=== PATIENT | male | born 1985 | race American Indian/Alaskan Native ===

== ENCOUNTER 2022-01-22 03:11 | Emergency (ER) | payer SELFPAY ==
[2022-01-22 04:01] VITALS: BP 141/74
--- NOTE | 2022-01-22 04:56 | XRay Report ---
CHEST 1 VIEW 01/22/2022 3:28 AM INDICATION / CLINICAL INFORMATION: chest pain left chest wall. COMPARISON: None available. FINDINGS: SUPPORT DEVICES: None. HEART / MEDIASTINUM: No significant abnormality. LUNGS / PLEURA: No significant pulmonary abnormality. No significant pleural effusion. No pneumothora x. ADDITIONAL FINDINGS: No significant additional findings. IMPRESSION: 1. No acute abnormality of the chest. Signer Name: Bello Lomeli MD Signed: 01/22/2022 4:51 AM Workstation Name: [id number]
[2022-01-22] MEDS ORDERED: ASPIRIN 325 MG TAB PO ONE (05:52)
--- NOTE | 2022-01-22 06:19 | Emergency Department Report ---
ED General Adult HPI - General Chief complaint: Chest Pain Stated complaint: CHEST PAIN Source: patient Mode of arrival: Ambulatory Limitations: No Limitations - History of Present Illness Initial comments: Patient is a 36-year-old -[place] male with a history of HIV and tobacco abuse who presents to the ED with intermittent left-sided chest pain for the last 3 hours. Patient states that he was asleep and woke up with left-sided chest pain and decided come to the ED for evaluation. Patient denies shortness of breath, dizziness, syncope, headache, nausea and vomiting, diaphoresis, neck pain, fever, chills, cough, abdominal pain, back pain, numbness and tingling or weakness of upper and lower extremities bilaterally. MD Complaint: left -sided chest pain -: Sudden, hour(s) (3) Location: chest Radiation: non-radiation Severity scale (0 -10): 4 Quality: aching Consistency: intermittent Improves with: none Worsens with: none Associated Symptoms: denies other symptoms, chest pain (Left-sided chest pain). denies: confusion, cough, diaphoresis, fever/chills, headaches, loss of appetite, malaise, nausea/vomiting, rash, shortness of breath, syncope, weakness, other Treatments Prior to Arrival: none - Related Data Allergies Allergy/AdvReac Type Severity Reaction Status Date / Time amoxicillin Allergy Rash Verified 01/22/22 04:02 ED Review of Systems ROS: Stated complaint: CHEST PAIN Other details as noted in HPI Constitutional: denies: chills, fever Eyes: denies: eye pain, eye discharge, vision change ENT: denies: ear pain, throat pain Respiratory: denies: cough, shortness of breath, wheezing Cardiovascular: chest pain (Left-sided chest pain). denies: palpitations Endocrine: no symptoms reported Gastrointestinal: denies: abdominal pain, nausea, vomiting, diarrhea Genitourinary: denies: urgency, dysuria Musculoskeletal: denies: back pain, joint swelling, arthralgia Skin: denies: rash, lesions Neurological: denies: headache, weakness, paresthesias Psychiatric: denies: anxiety, depression Hematological/Lymphatic: denies: easy bleeding, easy bruising ED Past Medical Hx - Past Medical History Hx HIV: Yes Additional medical history: Heavy tobacco abuse - Social History Smoking Status: Current Every Day Smoker Substance Use Type: None ED Physical Exam - General Limitations: No Limitations General appearance: alert, in no apparent distress - Head Head exam: Present: atraumatic, normocephalic, normal inspection - Eye Eye exam: Present: normal appearance, PERRL, EOMI Pupils: Present: normal accommodation - ENT ENT exam: Present: normal exam, normal orophraynx, mucous membranes moist, TM's normal bilaterally, normal external ear exam - Neck Neck exam: Present: normal inspection, full ROM. Absent: tenderness - Respiratory Respiratory exam: Present: normal lung sounds bilaterally, chest wall tenderness (Palpable reproducible left sided chest wall tenderness). Absent: respiratory distress, wheezes, rales, rhonchi, accessory muscle use - Cardiovascular Cardiovascular Exam: Present: regular rate, normal rhythm, normal heart sounds. Absent: systolic murmur, diastolic murmur, rubs, gallop - GI/Abdominal GI/Abdominal exam: Present: soft, normal bowel sounds. Absent: tenderness, guarding, rigid, hyperactive bowel sounds, hypoactive bowel sounds - Extremities Exam Extremities exam: Present: normal inspection, full ROM, normal capillary refill - Back Exam Back exam: Present: normal inspection, full ROM. Absent: tenderness, CVA tenderness (R), CVA tenderness (L), muscle spasm, paraspinal tenderness, vertebral tenderness - Neurological Exam Neurological exam: Present: alert, oriented X3, CN II-XII intact, normal gait, reflexes normal - Psychiatric Psychiatric exam: Present: normal affect, normal mood, anxious - Skin Skin exam: Present: warm, dry, intact, normal color. Absent: rash ED Course Vital Signs 01/22/22 03:55 Temperature 98.2 F Pulse Rate 75 Respiratory 12 Rate Blood Pressure 141/74 O2 Sat by Pulse 99 Oximetry ED Medical Decision Making - Radiology Data Radiology results: report reviewed, image reviewed [address] [address] XRay Report Signed Patient: RIGO EDWARDS MR#: [id number] : 1985 Acct:[id number] Age/Sex: 36 / M ADM Date: 01/22/22 Loc: ED Attending Dr: Ordering Physician: JOLANTA AMIN Date of Service: 01/22/22 Procedure(s): XR chest 1V ap Accession Number(s): [id number] cc: JOLANTA AMIN Fluoro Time In Minutes: CHEST 1 VIEW 01/22/2022 3:28 AM INDICATION / CLINICAL INFORMATION: chest pain left chest wall. COMPARISON: None available. FINDINGS: SUPPORT DEVICES: None. HEART / MEDIASTINUM: No significant abnormality. LUNGS / PLEURA: No significant pulmonary abnormality. No significant pleural effusion. No pneumothorax. ADDITIONAL FINDINGS: No significant additional findings. IMPRESSION: 1. No acute abnormality of the chest. Signer Name: Bello Lomeli MD Signed: 01/22/2022 4:51 AM Workstation Name: [id number] Transcribed By: ASHIA Dictated By: Bello Lomeli MD Electronically Authenticated By: Bello Lomeli MD Signed Date/Time: 01/22/22450 DD/ 9 TD/TT: - Medical Decision Making This is a 36-year-old -[place] male with a history of HIV and tobacco abuse who presents to the ED with intermittent left-sided chest pain for the last 3 hours. Patient states that he was asleep and woke up with left-sided chest pain and decided come to the ED for evaluation. In the ED, patient is alert and oriented x3 and is not in any distress. Chest x-ray showed no acute cardiopulmonary abnormalities or pneumonitis. Lab tests were ordered. Patient however left the ED AMA before EKG and labs could be drawn. - Differential Diagnosis ACS; pneumonia; costochondritis; muscle strain; PE; dissection; Critical care attestation.: If time is entered above; I have spent that time in minutes in the direct care of this critically ill patient, excluding procedure time. ED Disposition Clinical Impression: Acute nonspecific chest pain with low risk of coronary artery disease, Muscle strain of anterior chest wall, Acute costochondritis Disposition: 07 LEFT AGAINST MEDICAL ADVICE Is pt being admited?: No Does the pt Need Aspirin: No Condition: Undetermined Instructions: Chest Pain (ED) Time of Disposition: 06:19 Print Language: KIS[place]ILI
[2022-01-22 06:23] LABS: Basophils % (Auto) 0.3 % (0.0-1.8); Eosinophils # (Auto) 0.1 K/mm3 (0.0-0.4); Eosinophils % (Auto) 1.3 % (0.0-4.3); Hematocrit 45.9 % (35.5-45.6); Hemoglobin 15.7 gm/dl (11.8-15.2); Lymphocytes # (Auto) 1.8 K/mm3 (1.2-5.4); Lymphocytes % (Auto) 23.4 % (13.4-35.0); Mean Corpuscular HGB Conc 34 % (32-34); Mean Corpuscular Volume 90 fl (84-94); Monocytes # (Auto) 0.8 K/mm3 (0.0-0.8); Platelet Count 240 K/mm3 (140-440); Red Blood Count 5.11 M/mm3 (3.65-5.03)
[2022-01-22 06:37] LABS: Alanine Aminotransferase 9 units/L (7-56); Albumin 4.9 g/dL (3.9-5); BUN/Creatinine Ratio 14; Blood Urea Nitrogen 17 mg/dL (9-20); Calcium 9.8 mg/dL (8.4-10.2); Hemolysis Index 12
== END 2022-01-22 07:13 | disposition left against medical advice (07) ==
LOC: ED 03:11
DX: S29.011A Strain of muscle and tendon of front wall of thorax, initial encounter (principal); R07.89 Other chest pain; M94.0 Chondrocostal junction syndrome [Tietze]; Z21 Asymptomatic human immunodeficiency virus [HIV] infection status; F17.200 Nicotine dependence, unspecified, uncomplicated; X58.XXXA Exposure to other specified factors, initial encounter; Y93.89 Activity, other specified; Y92.89 Other specified places as the place of occurrence of the external cause; Y99.8 Other external cause status
CPT/HCPCS: 36415; 71045; 80053; 84484; 85025; 99283

== ENCOUNTER 2022-01-24 02:29 | Emergency (ER) | payer SELFPAY ==
--- NOTE | 2022-01-24 03:11 | XRay Report ---
RIGHT ANKLE 3 VIEWS INDICATION / CLINICAL INFORMATION: Right ankle pain/injury. COMPARISON: None available. FINDINGS: BONES and JOINT(S): No acute fracture or subluxation. No significant arthritis. SOFT TISSUES: No significant abnormality. ADDITIONAL FINDINGS: None. IMPRESSION: 1. No acute findings. Signer Name: Bello Lomeli MD Signed: 01/24/2022 3:06 AM Workstation Name: [id number]
[2022-01-24] MEDS ORDERED: IBUPROFEN 600 MG TAB PO ONE (04:03)
[2022-01-24] MEDS ORDERED: ACETAMINOPHEN 500 MG TAB PO ONE (04:03)
--- NOTE | 2022-01-24 06:26 | Emergency Department Report ---
ED Extremity Problem HPI - General Chief complaint: Extremity Injury, Lower Stated complaint: CHEST PAIN/SPRAIN RT ANKLE Source: patient Mode of arrival: Ambulatory Limitations: No Limitations - History of Present Illness Initial comments: Patient is a 36-year-old -[place] female with a history of HIV who presents to the ED with complaint of acute onset persistent mild distal anterior right lower leg pain with mild swelling for the last 2 days. Patient states the pain is worsened especially with movement. Patient denies fall, traumatic injury, fever, chills, cough, sore throat, nausea and vomiting, numbness and tingling or weakness of right leg or lower back pain. MD Complaint: extremity pain (Anterior right lower leg pain with mild swelling), extremity swelling (Distal mild anterior right lower leg swelling) -: Sudden, days(s) (2) Location: right, lower extremity (Distal right lower leg pain) History of Same: No -: Yes arthralgia (Distal right lower leg pain) Severity scale (0 -10): 6 Quality: aching, sharp Consistency: constant Improves with: nothing Worsens with: weight bearing, walking, palpation Associated Symptoms: denies other symptoms, arthralgias, rash (Mild erythematous rash on anterior right lower leg). denies: chest pain, shortness of breath, fever, myalgias - Related Data Previous Rx's Medication Instructions Recorded Last Taken Type Ibuprofen [Motrin] 800 mg PO Q8HR PRN #30 tablet 01/24/22 Unknown Rx Sulfamethoxazole/Trimethoprim 1 each PO Q12H #20 tab 01/24/22 Unknown Rx [Bactrim DS TAB] Allergies Allergy/AdvReac Type Severity Reaction Status Date / Time amoxicillin Allergy Rash Verified 01/22/22 04:02 ED Review of Systems ROS: Stated complaint: CHEST PAIN/SPRAIN RT ANKLE Other details as noted in HPI Constitutional: denies: chills, fever Eyes: denies: eye pain, eye discharge, vision change ENT: denies: ear pain, throat pain Respiratory: denies: cough, shortness of breath, wheezing Cardiovascular: denies: chest pain, palpitations Endocrine: no symptoms reported Gastrointestinal: denies: abdominal pain, nausea, diarrhea Genitourinary: denies: urgency, dysuria Musculoskeletal: arthralgia (Right distal right lower leg pain due to mild swelling and mild erythematous rash). denies: back pain, joint swelling Skin: rash (Mild erythematous rash on anterior distal right lower leg), change in color. denies: lesions Neurological: denies: headache, weakness, paresthesias Psychiatric: denies: anxiety, depression Hematological/Lymphatic: denies: easy bleeding, easy bruising ED Past Medical Hx - Past Medical History Previous Medical History?: Yes Hx HIV: Yes Additional medical history: Heavy tobacco abuse - Surgical History Past Surgical History?: No - Social History Smoking Status: Current Every Day Smoker Substance Use Type: None - Medications Home Medications: Home Medications Medication Instructions Recorded Confirmed Last Taken Type Ibuprofen [Motrin] 800 mg PO Q8HR PRN #30 tablet 01/24/22 Unknown Rx Sulfamethoxazole/Trimethoprim 1 each PO Q12H #20 tab 01/24/22 Unknown Rx [Bactrim DS TAB] ED Physical Exam - General Limitations: No Limitations General appearance: alert, in no apparent distress - Head Head exam: Present: atraumatic, normocephalic, normal inspection - Eye Eye exam: Present: normal appearance, PERRL, EOMI Pupils: Present: normal accommodation - ENT ENT exam: Present: normal exam, normal orophraynx, mucous membranes moist, TM's normal bilaterally, normal external ear exam - Neck Neck exam: Present: normal inspection, full ROM. Absent: tenderness - Respiratory Respiratory exam: Present: normal lung sounds bilaterally. Absent: respiratory distress, wheezes, rales, rhonchi, chest wall tenderness, accessory muscle use, prolonged expiratory - Cardiovascular Cardiovascular Exam: Present: regular rate, normal rhythm, normal heart sounds. Absent: systolic murmur, diastolic murmur, rubs, gallop - GI/Abdominal GI/Abdominal exam: Present: soft, normal bowel sounds. Absent: tenderness, guarding, rebound, hyperactive bowel sounds, hypoactive bowel sounds, organomegaly, mass - Extremities Exam Extremities exam: Present: normal inspection, full ROM, tenderness (Palpable mild tenderness on distal anterior right lower leg with mild swelling due to mild erythematous rash), normal capillary refill. Absent: pedal edema, joint swelling, calf tenderness - Back Exam Back exam: Present: normal inspection, full ROM. Absent: tenderness, CVA tenderness (R), CVA tenderness (L), muscle spasm, paraspinal tenderness, vertebral tenderness - Neurological Exam Neurological exam: Present: alert, oriented X3, CN II-XII intact, normal gait, reflexes normal - Psychiatric Psychiatric exam: Present: normal affect, normal mood - Skin Skin exam: Present: warm, dry, intact, normal color, rash (Mild erythematous maculopapular mildly tender rash on distal anterior right lower leg), erythema ED Course Vital Signs 01/24/22 02:34 Temperature 98.5 F Pulse Rate 88 Respiratory 16 Rate Blood Pressure 135/75 [Right] O2 Sat by Pulse 98 Oximetry ED Medical Decision Making - Medical Decision Making This is a 36-year-old -[place] female with a history of HIV who presents to the ED with complaint of acute onset persistent mild distal anterior right lower leg pain with mild swelling for the last 2 days. Patient states the pain is worsened especially with movement. In the ED, patient is alert and oriented x3 and is not in any distress. Patient was treated for pain in the ED. Based on the history and physical exam findings, the patient will discharge home on pain medications and prophylactic antibiotics and was advised to follow-up with his primary care physician in 7 to 10 days for reevaluation or return to the ED immediately if symptoms get worse. - Differential Diagnosis Cellulitis; tendinitis; muscle strain; Critical care attestation.: If time is entered above; I have spent that time in minutes in the direct care of this critically ill patient, excluding procedure time. ED Disposition Clinical Impression: Cellulitis of right leg without foot Muscle strain of right lower extremity Qualifiers: Encounter type: initial encounter Qualified Code(s): S86.911A - Strain of unspecified muscle(s) and tendon(s) at lower leg level, right leg, initial encounter Disposition: HOME / SELF CARE / HOMELESS Is pt being admited?: No Does the pt Need Aspirin: No Condition: Stable Instructions: Cellulitis, Adult, [id number], Muscle Strain, [id number] Additional Instructions: Take medication with food, drink plenty fluids and follow-up with your primary care physician in 7 to 10 days for reevaluation. Return to the ED immediately if symptoms get worse Prescriptions: Sulfamethoxazole/Trimethoprim [Bactrim DS TAB] 1 each PO Q12H #20 tab Ibuprofen [Motrin] 800 mg PO Q8HR PRN #30 tablet PRN Reason: Pain , Severe (7-10) Referrals: [facility] [Provider Group] - 7-10 days Time of Disposition: 06:27 Print Language: MOZAMBICAN
[2022-01-24 06:40] VITALS: BP 118/74
== END 2022-01-24 06:39 | disposition home or self-care (01) ==
LOC: ED 02:29
DX: S86.911A Strain of unspecified muscle(s) and tendon(s) at lower leg level, right leg, initial encounter (principal); L03.115 Cellulitis of right lower limb; Z21 Asymptomatic human immunodeficiency virus [HIV] infection status; F17.200 Nicotine dependence, unspecified, uncomplicated; Z91.09 Other allergy status, other than to drugs and biological substances; Z79.899 Other long term (current) drug therapy; X58.XXXA Exposure to other specified factors, initial encounter; Y93.89 Activity, other specified; Y92.89 Other specified places as the place of occurrence of the external cause; Y99.8 Other external cause status
CPT/HCPCS: 99283

== ENCOUNTER 2022-01-27 14:04 | Inpatient (IN) | payer SELFPAY ==
[2022-01-27] MEDS ORDERED: charcoal activated SOLUTION 25 GM/120 ML PO ONE (15:33)
[2022-01-27 16:16] LABS: INR 0.97 (0.87-1.13)
[2022-01-27 16:17] LABS: Partial Thromboplastin Time 23.3 Sec. (24.2-36.6)
[2022-01-27 16:25] LABS: Basophils % (Auto) 0.3 % (0.0-1.8); Eosinophils % (Auto) 0.4 % (0.0-4.3); Hematocrit 50.8 % (35.5-45.6); Hemoglobin 16.6 gm/dl (11.8-15.2); Lymphocytes # (Auto) 1.4 K/mm3 (1.2-5.4); Mean Corpuscular HGB Conc 33 % (32-34); Mean Corpuscular Volume 92 fl (84-94); Monocytes # (Auto) 0.6 K/mm3 (0.0-0.8); Monocytes % (Auto) 5.6 % (0.0-7.3); Platelet Count 241 K/mm3 (140-440); Red Blood Count 5.53 M/mm3 (3.65-5.03); Red Cell Distribution Width 13.6 % (13.2-15.2)
[2022-01-27 16:35] LABS: Alanine Aminotransferase 11 units/L (7-56); Albumin 5.1 g/dL (3.9-5); BUN/Creatinine Ratio 8; Blood Urea Nitrogen 9 mg/dL (9-20); Calcium 10.2 mg/dL (8.4-10.2); Hemolysis Index 2
[2022-01-27 16:46] LABS: Benzodiazepines Screen,Urine Negative; Methadone Screen,Urine Negative; Opiate Screen,Urine Negative
[2022-01-27 17:03] LABS: Amphetamine Screen,Urine Positive; Cannabinoid Screen,Urine Positive; Cocaine Screen,Urine Positive
--- NOTE | 2022-01-27 17:51 | Emergency Department Report ---
ED General Adult HPI - General Chief complaint: Overdose Stated complaint: SUICIDE ATTEMPT Time Seen by Provider: 01/27/22 15:12 Source: patient, EMS Mode of arrival: Stretcher Limitations: No Limitations - History of Present Illness Initial comments: patient presents 2/2 tasking 20 pills of an unknown medication @ home, 10 minutes [employer] in ED. 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 Patient states he was trying to kill himself when he did this. Denies , CP, SOB, abd pain, nausea, vomiting, back pain, palpitations, numbness, weakness. Severity scale (0 -10): 5 - Related Data Previous Rx's Medication Instructions Recorded Last Taken Type Ibuprofen [Motrin] 800 mg PO Q8HR PRN #30 tablet 01/24/22 Unknown Rx Sulfamethoxazole/Trimethoprim 1 each PO Q12H #20 tab 01/24/22 Unknown Rx [Bactrim DS TAB] Allergies Allergy/AdvReac Type Severity Reaction Status Date / Time amoxicillin Allergy Mild Rash Verified 01/27/22 14:43 ED Review of Systems ROS: Stated complaint: SUICIDE ATTEMPT Other details as noted in HPI Comment: All other systems reviewed and negative Constitutional: denies: chills, fever ED Past Medical Hx - Past Medical History Previous Medical History?: Yes Hx Arthritis: No Hx Psychiatric Treatment: No Hx HIV: Yes Additional medical history: Heavy tobacco abuse - Surgical History Past Surgical History?: No - Social History Smoking Status: Current Every Day Smoker Substance Use Type: Alcohol, Marijuana - Medications Home Medications: Home Medications Medication Instructions Recorded Confirmed Last Taken Type Ibuprofen [Motrin] 800 mg PO Q8HR PRN #30 tablet 01/24/22 Unknown Rx Sulfamethoxazole/Trimethoprim 1 each PO Q12H #20 tab 01/24/22 Unknown Rx [Bactrim DS TAB] ED Physical Exam - General Limitations: No Limitations General appearance: alert, in no apparent distress - Head Head exam: Present: atraumatic, normocephalic - Eye Eye exam: Present: PERRL, EOMI - ENT ENT exam: Present: mucous membranes moist, other (airway patent) - Neck Neck exam: Present: other (supple; no JVD) - Respiratory Respiratory exam: Present: other (good air entry, nml I:E, CTAB, no use of DAVID) - Cardiovascular Cardiovascular Exam: Present: regular rate. Absent: rubs, gallop - GI/Abdominal GI/Abdominal exam: Present: soft, normal bowel sounds. Absent: distended, tenderness - Extremities Exam Extremities exam: Present: full ROM. Absent: tenderness - Back Exam Back exam: Present: full ROM. Absent: tenderness - Neurological Exam Neurological exam: Present: alert, oriented X3, CN II-XII intact, other (GCS 15/15). Absent: motor sensory deficit - Skin Skin exam: Present: warm, normal color ED Course Vital Signs 01/27/22 01/27/22 01/27/22 14:20 14:36 14:45 Temperature Pulse Rate 105 H 69 Respiratory 18 15 Rate Blood Pressure 134/85 Blood Pressure 157/99 [Left] O2 Sat by Pulse 99 99 100 Oximetry 01/27/22 01/27/22 01/27/22 15:01 15:15 15:26 Temperature Pulse Rate 94 H 76 76 Respiratory 20 25 H 20 Rate Blood Pressure 131/81 137/83 Blood Pressure 137/83 [Left] O2 Sat by Pulse 99 99 99 Oximetry 01/27/22 01/27/22 01/27/22 15:31 15:34 15:45 Temperature 98.4 F Pulse Rate 86 83 77 Respiratory 18 20 27 H Rate Blood Pressure 137/83 123/80 123/80 Blood Pressure [Left] O2 Sat by Pulse 99 100 100 Oximetry 01/27/22 01/27/22 01/27/22 16:01 16:15 16:31 Temperature Pulse Rate 88 81 109 H Respiratory 24 18 17 Rate Blood Pressure 131/90 129/95 129/95 Blood Pressure [Left] O2 Sat by Pulse 99 Oximetry 01/27/22 01/27/22 01/27/22 16:45 17:01 17:15 Temperature Pulse Rate 85 83 79 Respiratory 22 21 20 Rate Blood Pressure 129/92 121/78 129/78 Blood Pressure [Left] O2 Sat by Pulse Oximetry 01/27/22 01/27/22 17:31 17:33 Temperature Pulse Rate 79 85 Respiratory 20 17 Rate Blood Pressure 129/78 Blood Pressure 129/92 [Left] O2 Sat by Pulse 99 Oximetry ED Medical Decision Making - Lab Data Result diagrams: 01/27/22 15:51 01/27/22 15:51 Laboratory Tests 01/27/22 01/27/22 01/27/22 15:51 15:51 15:51 WBC 10.4 RBC 5.53 H Hgb 16.6 H Hct 50.8 H MCV 92 MCH 30 MCHC 33 RDW 13.6 Plt Count 241 Lymph % (Auto) 13.0 L Young % (Auto) 5.6 Eos % (Auto) 0.4 Baso % (Auto) 0.3 Lymph # (Auto) 1.4 Young # (Auto) 0.6 Eos # (Auto) 0.0 Baso # (Auto) 0.0 Seg Neutrophils % 80.7 H Seg Neutrophils # 8.4 H PT INR APTT Sodium 139 Potassium 4.2 Chloride 100.4 Carbon Dioxide 28 Anion Gap 15 BUN 9 Creatinine 1.1 Estimated GFR > 60 BUN/Creatinine Ratio 8 Glucose 94 Calcium 10.2 Total Bilirubin 0.40 AST 13 ALT 11 Alkaline Phosphatase 79 Troponin T < 0.010 Total Protein 7.7 Albumin 5.1 H Albumin/Globulin Ratio 2.0 Salicylates < 0.3 L Urine Opiates Screen Urine Methadone Screen Acetaminophen Ur Barbiturates Screen Ur Phencyclidine Scrn Ur Amphetamines Screen U Benzodiazepines Scrn Urine Cocaine Screen U Marijuana (THC) Screen Drugs of Abuse Note Plasma/Serum Alcohol 01/27/22 01/27/22 01/27/22 15:51 15:51 15:51 WBC RBC Hgb Hct MCV MCH MCHC RDW Plt Count Lymph % (Auto) Young % (Auto) Eos % (Auto) Baso % (Auto) Lymph # (Auto) Young # (Auto) Eos # (Auto) Baso # (Auto) Seg Neutrophils % Seg Neutrophils # PT 14.0 INR 0.97 APTT 23.3 L Sodium Potassium Chloride Carbon Dioxide Anion Gap BUN Creatinine Estimated GFR BUN/Creatinine Ratio Glucose Calcium Total Bilirubin AST ALT Alkaline Phosphatase Troponin T Total Protein Albumin Albumin/Globulin Ratio Salicylates Urine Opiates Screen Urine Methadone Screen Acetaminophen 5.0 L Ur Barbiturates Screen Ur Phencyclidine Scrn Ur Amphetamines Screen U Benzodiazepines Scrn Urine Cocaine Screen U Marijuana (THC) Screen Drugs of Abuse Note Plasma/Serum Alcohol < 0.01 01/27/22 Unknown WBC RBC Hgb Hct MCV MCH MCHC RDW Plt Count Lymph % (Auto) Young % (Auto) Eos % (Auto) Baso % (Auto) Lymph # (Auto) Young # (Auto) Eos # (Auto) Baso # (Auto) Seg Neutrophils % Seg Neutrophils # PT INR APTT Sodium Potassium Chloride Carbon Dioxide Anion Gap BUN Creatinine Estimated GFR BUN/Creatinine Ratio Glucose Calcium Total Bilirubin AST ALT Alkaline Phosphatase Troponin T Total Protein Albumin Albumin/Globulin Ratio Salicylates Urine Opiates Screen Negative Urine Methadone Screen Negative Acetaminophen Ur Barbiturates Screen Negative Ur Phencyclidine Scrn Negative Ur Amphetamines Screen Positive U Benzodiazepines Scrn Negative Urine Cocaine Screen Positive U Marijuana (THC) Screen Positive Drugs of Abuse Note Disclamer Plasma/Serum Alcohol EKG: HR 72, SR, nml {R, narrow QRS 82, nml QTc 392, no significant St deflections from isoelectric line in contiguous leads - Medical Decision Making Poison control consulted. They recommend activated charcoal, supportive care and 24 hour obs. 1013 also signed. received activated charcoal, NS 125 ml/hr Critical care time in (mins) excluding proc time.: 45 Critical care attestation.: If time is entered above; I have spent that time in minutes in the direct care of this critically ill patient, excluding procedure time. ED Disposition Clinical Impression: Intentional drug overdose Disposition: ADMITTED INPATIENT Is pt being admited?: Yes Does the pt Need Aspirin: No Condition: Stable Time of Disposition: 17:00 (Patient admitted to Dr. Saeed. Sign out was given by me to the admitting physician.)
[2022-01-27] MEDS ORDERED: ONDANSETRON 4 MG/2 ML INJ IV PRN (18:02)
[2022-01-27] MEDS ORDERED: ACETAMINOPHEN 325 MG TAB PO PRN (18:02)
[2022-01-27] MEDS ORDERED: ALBUTEROL 2.5 MG/3 ML NEBU IH PRN (18:02)
[2022-01-27] MEDS ORDERED: oxyCODONE /ACETAMINOPHEN 5-325MG TAB PO PRN (18:02)
[2022-01-27] MEDS ORDERED: HYDROmorphone 1 MG/1 ML INJ IV PRN (18:02)
--- NOTE | 2022-01-27 18:05 | History and Physical Report ---
History of Present Illness Chief complaint: I tried to kill myself History of present illness: 36 YO Male with HIV, Nicotine Dependence, PSA presents to ED for evaluation. Patient reports "I tried to kill myself". Patient states that he took approximately 0.20 unknown pills while at home in an attempt to take his own life. EMS was notified and upon arrival the patient was found to be in psychiatric distress. The patient was transported to [facility] for further care and evaluation of the aforementioned symptoms. The patient was seen and evaluated in the emergency department. All lab and imaging studies reviewed. Poison troduane notified in the emergency department. And the patient was treated with activated charcoal. Patient admitted to telemetry due to increased risk of worsening symptoms due to ingestion of unknown medication. No further history is obtainable. No reports of fever, chills, chest pain, palpitation, productive cough, skin rash and recent contact, known exposure to COVID-19. No prior adm ission for review. No medication listed at time of admission for reconciliation. Past History Past Medical History: HIV/AIDS Past Surgical History: No surgical history Social history: smoking Family history: no significant family history Medications and Allergies Allergies Allergy/AdvReac Type Severity Reaction Status Date / Time amoxicillin Allergy Mild Rash Verified 01/27/22 14:43 Home Medications Medication Instructions Recorded Confirmed Last Taken Type Ibuprofen [Motrin] 800 mg PO Q8HR PRN #30 tablet 01/24/22 Unknown Rx Sulfamethoxazole/Trimethoprim 1 each PO Q12H #20 tab 01/24/22 Unknown Rx [Bactrim DS TAB] Active Meds: Active Medications Sodium Chloride (Nacl 0.9% 1000 Ml) 1,000 mls @ 125 mls/hr IV DIRECT TAYE Review of Systems ROS unobtainable: due to mental status Exam - Constitutional Vitals: Temp Pulse Resp BP Pulse Ox 98.4 F 85 17 129/92 99 01/27/22 15:34 01/27/22 17:33 01/27/22 17:33 01/27/22 17:33 01/27/22 17:33 General appearance: Present: mild distress - EENT Eyes: Present: PERRL ENT: hearing intact, clear oral mucosa - Neck Neck: Present: supple, normal ROM - Respiratory Respiratory effort: normal Respiratory: bilateral: CTA - Cardiovascular Heart Sounds: Present: S1 & S2. Absent: rub, click - Extremities Extremities: pulses symmetrical, No edema Peripheral Pulses: within normal limits - Abdominal General gastrointestinal: Present: soft, non-tender, non-distended, normal bowel sounds Male genitourinary: Present: normal - Integumentary Integumentary: Present: clear, warm, dry - Musculoskeletal Musculoskeletal: gait normal, strength equal bilaterally - Psychiatric Psychiatric: appropriate mood/affect, intact judgment & insight - Neurologic Neurologic: CNII-XII intact, moves all extremities HEART Score - HEART Score Troponin: Troponin T < 0.010 ng/mL (0.00-0.029) 01/27/22 17:00 Results - Labs CBC & Chem 7: 01/27/22 15:51 01/27/22 15:51 Labs: Abnormal lab results 01/27/22 01/27/22 01/27/22 Range/Units 15:51 15:51 15:51 RBC 5.53 H (3.65-5.03) M/mm3 Hgb 16.6 H (11.8-15.2) gm/dl Hct 50.8 H (35.5-45.6) % Lymph % (Auto) 13.0 L (13.4-35.0) % Seg Neutrophils % 80.7 H (40.0-70.0) % Seg Neutrophils # 8.4 H (1.8-7.7) K/mm3 APTT (24.2-36.6) Sec. Total Creatine Kinase (55-170) units/L Albumin 5.1 H (3.9-5) g/dL Salicylates < 0.3 L (2.8-20.0) mg/dL Acetaminophen (10.0-30.0) ug/mL 01/27/22 01/27/22 01/27/22 Range/Units 15:51 15:51 17:00 RBC (3.65-5.03) M/mm3 Hgb (11.8-15.2) gm/dl Hct (35.5-45.6) % Lymph % (Auto) (13.4-35.0) % Seg Neutrophils % (40.0-70.0) % Seg Neutrophils # (1.8-7.7) K/mm3 APTT 23.3 L (24.2-36.6) Sec. Total Creatine Kinase 212 H (55-170) units/L Albumin (3.9-5) g/dL Salicylates (2.8-20.0) mg/dL Acetaminophen 5.0 L (10.0-30.0) ug/mL Assessment and Plan - Patient Problems (1) Suicide attempt Current Visit: Yes Status: Acute Plan to address problem: Post control notified. Activated charcoal administered in the emergency department. Mental health team consulted. IV fluid resuscitation therapy, supportive care. (2) DVT prophylaxis Current Visit: Yes Status: Acute Plan to address problem: SCD to bilateral lower extremities while in bed (3) Intentional drug overdose Current Visit: No Status: Acute Qualifiers: Encounter type: initial encounter Qualified Code(s): T50.902A - Poisoning by unspecified drugs, medicaments and biological substances, intentional self- harm, initial encounter Plan to address problem: Supportive care, IV fluid resuscitation therapy, BMP, repeat BMP in a.m., Poison control notified. Continue medical management. (4) Advance care planning Current Visit: Yes Status: Acute Plan to address problem: Disease education data, care plan discussed, diagnoses discussed, prognosis discussed, patient is full code, +30 minutes. (5) Preventative health care Current Visit: Yes Status: Acute Plan to address problem: Patient counseled regarding outpatient mental health, management or life stressors,
[2022-01-28] MEDS: SODIUM CHLORIDE 0.9% 1000 ML 1,000 ML IV SCH ×2 (00:06→06:33)
[2022-01-28 06:30] LABS: BUN/Creatinine Ratio 8; Blood Urea Nitrogen 11 mg/dL (9-20); Calcium 9.2 mg/dL (8.4-10.2); Hemolysis Index 11
--- NOTE | 2022-01-28 12:25 | Progress Note ---
Assessment and Plan Assessment and plan: 36 YO Male with HIV, Nicotine Dependence, PSA presents to ED for evaluation of a suicide attempt. Patient took 20 pills of an unknown medication @ home, 10 minutes [facility] RE[facility] CAMERAMAN in ED. 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 Patient states he was trying to kill himself.\ Suicidal attempt/ideation Intentional drug overdose HIV 01/28/2022. Continue 1013. Patient is s/p activated charcoal. Await psychiatric evaluation. History Interval history: No new issues overnight Hospitalist Physical - Constitutional Vitals: Temp Pulse Resp BP Pulse Ox 98.3 F 63 13 117/68 99 01/28/22 04:55 01/28/22 04:55 01/28/22 04:55 01/28/22 04:55 01/28/22 04:55 General appearance: Present: no acute distress - EENT Eyes: Present: PERRL, EOM intact ENT: hearing intact, clear oral mucosa, dentition normal - Neck Neck: Present: supple, normal ROM - Respiratory Respiratory effort: normal Respiratory: bilateral: CTA - Cardiovascular Rhythm: regular Heart Sounds: Present: S1 & S2. Absent: gallop, rub - Extremities Extremities: no ischemia, No edema, Full ROM - Abdominal General gastrointestinal: soft, non-tender, non-distended, normal bowel sounds - Integumentary Integumentary: Present: clear, warm, dry - Neurologic Neurologic: CNII-XII intact, moves all extremities HEART Score - HEART Score Troponin: Troponin T < 0.010 ng/mL (0.00-0.029) 01/27/22 17:00 Results - Labs CBC & Chem 7: 01/27/22 15:51 01/28/22 05:45 Labs: Laboratory Last Values WBC 10.4 K/mm3 (4.5-11.0) 01/27/22 15:51 RBC 5.53 M/mm3 (3.65-5.03) H 01/27/22 15:51 Hgb 16.6 gm/dl (11.8-15.2) H 01/27/22 15:51 Hct 50.8 % (35.5-45.6) H 01/27/22 15:51 MCV 92 fl (84-94) 01/27/22 15:51 MCH 30 pg (28-32) 01/27/22 15:51 MCHC 33 % (32-34) 01/27/22 15:51 RDW 13.6 % (13.2-15.2) 01/27/22 15:51 Plt Count 241 K/mm3 (140-440) 01/27/22 15:51 Lymph % (Auto) 13.0 % (13.4-35.0) L 01/27/22 15:51 [place] % (Auto) 5.6 % (0.0-7.3) 01/27/22 15:51 Eos % (Auto) 0.4 % (0.0-4.3) 01/27/22 15:51 Baso % (Auto) 0.3 % (0.0-1.8) 01/27/22 15:51 Lymph # (Auto) 1.4 K/mm3 (1.2-5.4) 01/27/22 15:51 [place] # (Auto) 0.6 K/mm3 (0.0-0.8) 01/27/22 15:51 Eos # (Auto) 0.0 K/mm3 (0.0-0.4) 01/27/22 15:51 Baso # (Auto) 0.0 K/mm3 (0.0-0.1) 01/27/22 15:51 Seg Neutrophils % 80.7 % (40.0-70.0) H 01/27/22 15:51 Seg Neutrophils # 8.4 K/mm3 (1.8-7.7) H 01/27/22 15:51 PT 14.0 Sec. (12.2-14.9) 01/27/22 15:51 INR 0.97 (0.87-1.13) 01/27/22 15:51 APTT 23.3 Sec. (24.2-36.6) L 01/27/22 15:51 Sodium 139 mmol/L (137-145) 01/28/22 05:45 Potassium 3.7 mmol/L (3.6-5.0) 01/28/22 05:45 Chloride 102.0 mmol/L (98-107) 01/28/22 05:45 Carbon Dioxide 26 mmol/L (22-30) 01/28/22 05:45 Anion Gap 15 mmol/L 01/28/22 05:45 BUN 11 mg/dL (9-20) 01/28/22 05:45 Creatinine 1.3 mg/dL (0.8-1.3) 01/28/22 05:45 Estimated GFR > 60 ml/min 01/28/22 05:45 BUN/Creatinine Ratio 8 % 01/28/22 05:45 Glucose 102 mg/dL (75-100) H 01/28/22 05:45 Calcium 9.2 mg/dL (8.4-10.2) 01/28/22 05:45 Total Bilirubin 0.40 mg/dL (0.1-1.2) 01/27/22 15:51 AST 13 units/L (5-40) 01/27/22 15:51 ALT 11 units/L (7-56) 01/27/22 15:51 Alkaline Phosphatase 79 units/L (35-129) 01/27/22 15:51 Total Creatine Kinase 212 units/L (55-170) H 01/27/22 17:00 Troponin T < 0.010 ng/mL (0.00-0.029) 01/27/22 17:00 Total Protein 7.7 g/dL (6.3-8.2) 01/27/22 15:51 Albumin 5.1 g/dL (3.9-5) H 01/27/22 15:51 Albumin/Globulin Ratio 2.0 % 01/27/22 15:51 Salicylates < 0.3 mg/dL (2.8-20.0) L 01/27/22 15:51 Urine Opiates Screen Negative 01/27/22 Unknown Urine Methadone Screen Negative 01/27/22 Unknown Acetaminophen 5.0 ug/mL (10.0-30.0) L 01/27/22 15:51 Ur Barbiturates Screen Negative 01/27/22 Unknown Ur Phencyclidine Scrn Negative 01/27/22 Unknown Ur Amphetamines Screen Positive 01/27/22 Unknown U Benzodiazepines Scrn Negative 01/27/22 Unknown Urine Cocaine Screen Positive 01/27/22 Unknown U Marijuana (THC) Screen Positive 01/27/22 Unknown Drugs of Abuse Note Disclamer 01/27/22 Unknown Plasma/Serum Alcohol < 0.01 % (0-0.07) 01/27/22 15:51 Steen/IV: Voiding Method Urinal Active Medications - Current Medications Current Medications: Generic Name Dose Route Start Last Admin Trade Name Freq PRN Reason Stop Dose Admin Acetaminophen 650 mg 01/27/22 18:02 Acetaminophen 325 Mg Tab PO Q4H PRN Pain MILD(1-3)/Fever >100.5/ Albuterol 2.5 mg 01/27/22 18:02 Albuterol 2.5 Mg/3 Ml Nebu IH Q4HRT PRN Shortness Of Breath Hydromorphone HCl 0.5 mg 01/27/22 18:02 Hydromorphone 1 Mg/1 Ml Inj IV Q23H PRN Pain , Severe (7-10) Sodium Chloride 1,000 mls @ 125 mls/hr 01/27/22 18:15 Nacl 0.9% 1000 Ml IV DIRECT TAYE Ondansetron HCl 4 mg 01/27/22 18:02 01/28/22 00:06 Ondansetron 4 Mg/2 Ml Inj IV 4 mg Q8H PRN Administration Nausea And Vomiting Oxycodone/Acetaminophen 1 tab 01/27/22 18:02 Oxycodone /Acetaminophen 5-325mg Tab PO Q26H PRN Pain, Moderate (4-6) Sodium Chloride 10 ml 01/27/22 22:00 01/28/22 00:06 Sodium Chloride 0.9% 10 Ml Flush Syringe IV 10 ml BID TAYE Administration Sodium Chloride 10 ml 01/27/22 18:02 Sodium Chloride 0.9% 10 Ml Flush Syringe IV PRN PRN LINE FLUSH
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
--- NOTE | 2022-01-28 17:13 | Electrocardiograph Report ---
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
[2022-01-28] MEDS: DIVALPROEX DR 125 MG TAB PO SCH (23:06)
[2022-01-28] MEDS: QUEtiapine 25 MG TAB PO SCH ×2 (23:07→23:10)
[2022-01-29 06:04] LABS: Basophils % (Auto) 0.5 % (0.0-1.8); Eosinophils # (Auto) 0.1 K/mm3 (0.0-0.4); Eosinophils % (Auto) 1.7 % (0.0-4.3); Hematocrit 44.9 % (35.5-45.6); Hemoglobin 14.7 gm/dl (11.8-15.2); Lymphocytes # (Auto) 2.3 K/mm3 (1.2-5.4); Mean Corpuscular HGB Conc 33 % (32-34); Mean Corpuscular Volume 91 fl (84-94); Monocytes # (Auto) 0.4 K/mm3 (0.0-0.8); Monocytes % (Auto) 5.8 % (0.0-7.3); Platelet Count 212 K/mm3 (140-440); Red Blood Count 4.92 M/mm3 (3.65-5.03); Red Cell Distribution Width 13.6 % (13.2-15.2)
[2022-01-29 06:22] LABS: BUN/Creatinine Ratio 7; Blood Urea Nitrogen 8 mg/dL (9-20); Hemolysis Index 12
[2022-01-29] MEDS: QUEtiapine 25 MG TAB PO SCH ×3 (09:33→23:47)
[2022-01-29] MEDS: DIVALPROEX DR 125 MG TAB PO SCH ×2 (09:33→23:46)
--- NOTE | 2022-01-29 10:00 | Progress Note ---
Subjective - Reason for Consult Consult date: 01/29/22 Reason for consult: suicidal attempt - Chief Complaint Chief complaint: The patient was seen this morning. He reports feeling better. He continues to endorse suicidal ideation and hallucinations. The patient is homeless, stating he needs help with placement and rehab. and if this needs are not met he will continue to being suicidal. REVIEW OF SYSTEMS Constitutional: Negative for weight loss ENT: Negative for stridor Respiratory: Negative for cough or hemoptysis All other systems reviewed and are negative MENTAL STATUS EXAMINATION General Appearance and Behavior: Age appropriate, good hygiene, wearing appropriate clothes, good eye contact, anxious, cooperative Cooperation: Participating/engaged Psychomotor Behavior: Psychomotor normal Mood:Depressed Affect and affective range: congruent with stated mood Thought Process: Goal directed Thought Content: Hallucinations Speech: Normal tone and pace Suicidal Ideation:yes Homicidal Ideation: Denies Hallucinations: Auditory Delusions: None Impulse Control: Limited Insight and Judgment: Limited insight and judgment Memory: Limited Attention: attentive Orientation: Alert, oriented Diagnoses: Bipolar Disorder Treatment Plan 1013 Continue home meds PSYCHOTHERAPY: Supportive psychotherapy provided MEDICAL: Per primary team DELIRIUM PRECAUTIONS: Please re-orient patient frequently, keep lights on during the day, and minimize benzodiazepines and opiates as these medications could worsen patient's confusion. 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 Will follow. Thanks. Thank you for the consult. Case staffed with Dr. Schneider Medications and Allergies Mental Status Exam - Vital signs Last Vital Signs Temp 97.8 F 01/29/22 04:26 Pulse 52 L 01/29/22 04:26 Resp 18 01/29/22 04:26 BP 114/54 01/29/22 04:26 Pulse Ox 97 01/29/22 04:26
--- NOTE | 2022-01-29 10:22 | Progress Note ---
Assessment and Plan Assessment and plan: 36 YO Male with HIV, Nicotine Dependence, PSA presents to ED for evaluation of a suicide attempt. 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 Patient states he was trying to kill himself.\ Suicidal attempt/ideation Intentional drug overdose Bipolar disorder HIV 01/28/2022. Continue 1013. Patient is s/p activated charcoal. Await ps ychiatric evaluation. 01/29/2022. The patient continues to endorse suicidal ideation and hallucinat ions. The patient is homeless, stating he needs help with placement and rehab. and if this needs are not met he will continue to being suicidal. Cont. 1013. History Interval history: No new issues overnight Hospitalist Physical - Constitutional Vitals: Temp Pulse Resp BP Pulse Ox 97.8 F 52 L 18 114/54 97 01/29/22 04:26 01/29/22 04:26 01/29/22 04:26 01/29/22 04:26 01/29/22 04:26 General appearance: Present: no acute distress - EENT Eyes: Present: PERRL, EOM intact ENT: hearing intact, clear oral mucosa, dentition normal - Neck Neck: Present: supple, normal ROM - Respiratory Respiratory effort: normal Respiratory: bilateral: CTA - Cardiovascular Rhythm: regular Heart Sounds: Present: S1 & S2. Absent: gallop, rub - Extremities Extremities: no ischemia, No edema, Full ROM - Abdominal General gastrointestinal: soft, non-tender, non-distended, normal bowel sounds - Integumentary Integumentary: Present: clear, warm, dry - Neurologic Neurologic: CNII-XII intact, moves all extremities HEART Score - HEART Score Troponin: Troponin T < 0.010 ng/mL (0.00-0.029) 01/27/22 17:00 Results - Labs CBC & Chem 7: 01/29/22 05:39 01/29/22 05:39 Labs: Laboratory Last Values WBC 6.7 K/mm3 (4.5-11.0) 01/29/22 05:39 RBC 4.92 M/mm3 (3.65-5.03) 01/29/22 05:39 Hgb 14.7 gm/dl (11.8-15.2) 01/29/22 05:39 Hct 44.9 % (35.5-45.6) 01/29/22 05:39 MCV 91 fl (84-94) 01/29/22 05:39 MCH 30 pg (28-32) 01/29/22 05:39 MCHC 33 % (32-34) 01/29/22 05:39 RDW 13.6 % (13.2-15.2) 01/29/22 05:39 Plt Count 212 K/mm3 (140-440) 01/29/22 05:39 Lymph % (Auto) 34.0 % (13.4-35.0) 01/29/22 05:39 [place] % (Auto) 5.8 % (0.0-7.3) 01/29/22 05:39 Eos % (Auto) 1.7 % (0.0-4.3) 01/29/22 05:39 Baso % (Auto) 0.5 % (0.0-1.8) 01/29/22 05:39 Lymph # (Auto) 2.3 K/mm3 (1.2-5.4) 01/29/22 05:39 [place] # (Auto) 0.4 K/mm3 (0.0-0.8) 01/29/22 05:39 Eos # (Auto) 0.1 K/mm3 (0.0-0.4) 01/29/22 05:39 Baso # (Auto) 0.0 K/mm3 (0.0-0.1) 01/29/22 05:39 Seg Neutrophils % 58.0 % (40.0-70.0) 01/29/22 05:39 Seg Neutrophils # 3.9 K/mm3 (1.8-7.7) 01/29/22 05:39 PT 14.0 Sec. (12.2-14.9) 01/27/22 15:51 INR 0.97 (0.87-1.13) 01/27/22 15:51 APTT 23.3 Sec. (24.2-36.6) L 01/27/22 15:51 Sodium 140 mmol/L (137-145) 01/29/22 05:39 Potassium 4.3 mmol/L (3.6-5.0) 01/29/22 05:39 Chloride 106.6 mmol/L (98-107) 01/29/22 05:39 Carbon Dioxide 24 mmol/L (22-30) 01/29/22 05:39 Anion Gap 14 mmol/L 01/29/22 05:39 BUN 8 mg/dL (9-20) L 01/29/22 05:39 Creatinine 1.2 mg/dL (0.8-1.3) 01/29/22 05:39 Estimated GFR > 60 ml/min 01/29/22 05:39 BUN/Creatinine Ratio 7 % 01/29/22 05:39 Glucose 98 mg/dL (75-100) 01/29/22 05:39 Calcium 9.0 mg/dL (8.4-10.2) 01/29/22 05:39 Total Bilirubin 0.40 mg/dL (0.1-1.2) 01/27/22 15:51 AST 13 units/L (5-40) 01/27/22 15:51 ALT 11 units/L (7-56) 01/27/22 15:51 Alkaline Phosphatase 79 units/L (35-129) 01/27/22 15:51 Total Creatine Kinase 212 units/L (55-170) H 01/27/22 17:00 Troponin T < 0.010 ng/mL (0.00-0.029) 01/27/22 17:00 Total Protein 7.7 g/dL (6.3-8.2) 01/27/22 15:51 Albumin 5.1 g/dL (3.9-5) H 01/27/22 15:51 Albumin/Globulin Ratio 2.0 % 01/27/22 15:51 Salicylates < 0.3 mg/dL (2.8-20.0) L 01/27/22 15:51 Urine Opiates Screen Negative 01/27/22 Unknown Urine Methadone Screen Negative 01/27/22 Unknown Acetaminophen 5.0 ug/mL (10.0-30.0) L 01/27/22 15:51 Ur Barbiturates Screen Negative 01/27/22 Unknown Ur Phencyclidine Scrn Negative 01/27/22 Unknown Ur Amphetamines Screen Positive 01/27/22 Unknown U Benzodiazepines Scrn Negative 01/27/22 Unknown Urine Cocaine Screen Positive 01/27/22 Unknown U Marijuana (THC) Screen Positive 01/27/22 Unknown Drugs of Abuse Note Disclamer 01/27/22 Unknown Plasma/Serum Alcohol < 0.01 % (0-0.07) 01/27/22 15:51 Steen/IV: Voiding Method Toilet Active Medications - Current Medications Current Medications: Generic Name Dose Route Start Last Admin Trade Name Freq PRN Reason Stop Dose Admin Acetaminophen 650 mg 01/27/22 18:02 Acetaminophen 325 Mg Tab PO Q4H PRN Pain MILD(1-3)/Fever >100.5/ Albuterol 2.5 mg 01/27/22 18:02 Albuterol 2.5 Mg/3 Ml Nebu IH Q4HRT PRN Shortness Of Breath Divalproex Sodium 125 mg 01/28/22 22:00 01/29/22 09:[address] 125 Mg Tab PO 125 mg BID TAYE Administration Hydromorphone HCl 0.5 mg 01/27/22 18:02 Hydromorphone 1 Mg/1 Ml Inj IV Q23H PRN Pain , Severe (7-10) Sodium Chloride 1,000 mls @ 125 mls/hr 01/27/22 18:15 Nacl 0.9% 1000 Ml IV DIRECT TAYE Ondansetron HCl 4 mg 01/27/22 18:02 01/28/22 00:06 Ondansetron 4 Mg/2 Ml Inj IV 4 mg Q8H PRN Administration Nausea And Vomiting Oxycodone/Acetaminophen 1 tab 01/27/22 18:02 Oxycodone /Acetaminophen 5-325mg Tab PO Q26H PRN Pain, Moderate (4-6) Quetiapine Fumarate 25 mg 01/28/22 22:00 01/29/22 09:33 Quetiapine 25 Mg Tab PO 25 mg BID TAYE Administration Quetiapine Fumarate 50 mg 01/28/22 22:00 01/28/22 23:07 Quetiapine 25 Mg Tab PO 50 mg QHS TAYE Administration Sodium Chloride 10 ml 01/27/22 22:00 01/29/22 09:35 Sodium Chloride 0.9% 10 Ml Flush Syringe IV 10 ml BID TAYE Administration Sodium Chloride 10 ml 01/27/22 18:02 Sodium Chloride 0.9% 10 Ml Flush Syringe IV PRN PRN LINE FLUSH
[2022-01-30 07:46] LABS: Basophils % (Auto) 0.4 % (0.0-1.8); Eosinophils # (Auto) 0.2 K/mm3 (0.0-0.4); Eosinophils % (Auto) 2.6 % (0.0-4.3); Hemoglobin 15.6 gm/dl (11.8-15.2); Lymphocytes # (Auto) 1.7 K/mm3 (1.2-5.4); Lymphocytes % (Auto) 29.5 % (13.4-35.0); Mean Corpuscular HGB Conc 33 % (32-34); Mean Corpuscular Volume 91 fl (84-94); Monocytes # (Auto) 0.4 K/mm3 (0.0-0.8); Platelet Count 229 K/mm3 (140-440); Red Blood Count 5.17 M/mm3 (3.65-5.03)
[2022-01-30 08:31] LABS: BUN/Creatinine Ratio 5; Blood Urea Nitrogen 6 mg/dL (9-20); Calcium 9.2 mg/dL (8.4-10.2); Hemolysis Index 5
[2022-01-30] MEDS: DIVALPROEX DR 125 MG TAB PO SCH ×2 (09:06→22:15)
[2022-01-30] MEDS: QUEtiapine 25 MG TAB PO SCH ×3 (09:06→22:16)
--- NOTE | 2022-01-30 11:31 | Progress Note ---
Assessment and Plan Assessment and plan: 36 YO Male with HIV, Nicotine Dependence, PSA presents to ED for evaluation of a suicide attempt. 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 Patient states he was trying to kill himself.\ Suicidal attempt/ideation Intentional drug overdose Bipolar disorder HIV 01/28/2022. Continue 1013. Patient is s/p activated charcoal. Await ps ychiatric evaluation. 01/29/2022. The patient continues to endorse suicidal ideation and hallucinat ions. The patient is homeless, stating he needs help with placement and rehab. and if this needs are not met he will continue to being suicidal. Cont. 1013. 01/30/2022. Continue 1013 and supportive care. Await case management follow-up for discharge disposition. Psychiatry following History Interval history: No new issues overnight Hospitalist Physical - Constitutional Vitals: Temp Pulse Resp BP Pulse Ox 98.3 F 54 L 20 111/73 99 01/30/22 04:15 01/30/22 04:15 01/30/22 08:35 01/30/22 04:15 01/30/22 08:35 General appearance: Present: no acute distress - EENT Eyes: Present: PERRL, EOM intact ENT: hearing intact, clear oral mucosa, dentition normal - Neck Neck: Present: supple, normal ROM - Respiratory Respiratory effort: normal Respiratory: bilateral: CTA - Cardiovascular Rhythm: regular Heart Sounds: Present: S1 & S2. Absent: gallop, rub - Extremities Extremities: no ischemia, No edema, Full ROM - Abdominal General gastrointestinal: soft, non-tender, non-distended, normal bowel sounds - Integumentary Integumentary: Present: clear, warm, dry - Neurologic Neurologic: CNII-XII intact, moves all extremities HEART Score - HEART Score Troponin: Troponin T < 0.010 ng/mL (0.00-0.029) 01/27/22 17:00 Results - Labs CBC & Chem 7: 01/30/22 07:18 01/30/22 07:18 Labs: Laboratory Last Values WBC 5.9 K/mm3 (4.5-11.0) 01/30/22 07:18 RBC 5.17 M/mm3 (3.65-5.03) H 01/30/22 07:18 Hgb 15.6 gm/dl (11.8-15.2) H 01/30/22 07:18 Hct 47.0 % (35.5-45.6) H 01/30/22 07:18 MCV 91 fl (84-94) 01/30/22 07:18 MCH 30 pg (28-32) 01/30/22 07:18 MCHC 33 % (32-34) 01/30/22 07:18 RDW 14.0 % (13.2-15.2) 01/30/22 07:18 Plt Count 229 K/mm3 (140-440) 01/30/22 07:18 Lymph % (Auto) 29.5 % (13.4-35.0) 01/30/22 07:18 [place] % (Auto) 7.0 % (0.0-7.3) 01/30/22 07:18 Eos % (Auto) 2.6 % (0.0-4.3) 01/30/22 07:18 Baso % (Auto) 0.4 % (0.0-1.8) 01/30/22 07:18 Lymph # (Auto) 1.7 K/mm3 (1.2-5.4) 01/30/22 07:18 [place] # (Auto) 0.4 K/mm3 (0.0-0.8) 01/30/22 07:18 Eos # (Auto) 0.2 K/mm3 (0.0-0.4) 01/30/22 07:18 Baso # (Auto) 0.0 K/mm3 (0.0-0.1) 01/30/22 07:18 Seg Neutrophils % 60.5 % (40.0-70.0) 01/30/22 07:18 Seg Neutrophils # 3.6 K/mm3 (1.8-7.7) 01/30/22 07:18 PT 14.0 Sec. (12.2-14.9) 01/27/22 15:51 INR 0.97 (0.87-1.13) 01/27/22 15:51 APTT 23.3 Sec. (24.2-36.6) L 01/27/22 15:51 Sodium 140 mmol/L (137-145) 01/30/22 07:18 Potassium 4.3 mmol/L (3.6-5.0) 01/30/22 07:18 Chloride 105.4 mmol/L (98-107) 01/30/22 07:18 Carbon Dioxide 25 mmol/L (22-30) 01/30/22 07:18 Anion Gap 14 mmol/L 01/30/22 07:18 BUN 6 mg/dL (9-20) L 01/30/22 07:18 Creatinine 1.2 mg/dL (0.8-1.3) 01/30/22 07:18 Estimated GFR > 60 ml/min 01/30/22 07:18 BUN/Creatinine Ratio 5 % 01/30/22 07:18 Glucose 95 mg/dL (75-100) 01/30/22 07:18 Calcium 9.2 mg/dL (8.4-10.2) 01/30/22 07:18 Total Bilirubin 0.40 mg/dL (0.1-1.2) 01/27/22 15:51 AST 13 units/L (5-40) 01/27/22 15:51 ALT 11 units/L (7-56) 01/27/22 15:51 Alkaline Phosphatase 79 units/L (35-129) 01/27/22 15:51 Total Creatine Kinase 212 units/L (55-170) H 01/27/22 17:00 Troponin T < 0.010 ng/mL (0.00-0.029) 01/27/22 17:00 Total Protein 7.7 g/dL (6.3-8.2) 01/27/22 15:51 Albumin 5.1 g/dL (3.9-5) H 01/27/22 15:51 Albumin/Globulin Ratio 2.0 % 01/27/22 15:51 Salicylates < 0.3 mg/dL (2.8-20.0) L 01/27/22 15:51 Urine Opiates Screen Negative 01/27/22 Unknown Urine Methadone Screen Negative 01/27/22 Unknown Acetaminophen 5.0 ug/mL (10.0-30.0) L 01/27/22 15:51 Ur Barbiturates Screen Negative 01/27/22 Unknown Ur Phencyclidine Scrn Negative 01/27/22 Unknown Ur Amphetamines Screen Positive 01/27/22 Unknown U Benzodiazepines Scrn Negative 01/27/22 Unknown Urine Cocaine Screen Positive 01/27/22 Unknown U Marijuana (THC) Screen Positive 01/27/22 Unknown Drugs of Abuse Note Disclamer 01/27/22 Unknown Plasma/Serum Alcohol < 0.01 % (0-0.07) 01/27/22 15:51 Steen/IV: Voiding Method Toilet Active Medications - Current Medications Current Medications: Generic Name Dose Route Start Last Admin Trade Name Freq PRN Reason Stop Dose Admin Acetaminophen 650 mg 01/27/22 18:02 Acetaminophen 325 Mg Tab PO Q4H PRN Pain MILD(1-3)/Fever >100.5/ Albuterol 2.5 mg 01/27/22 18:02 Albuterol 2.5 Mg/3 Ml Nebu IH Q4HRT PRN Shortness Of Breath Divalproex Sodium 125 mg 01/28/22 22:00 01/30/22 09:[address] 125 Mg Tab PO 125 mg BID TAYE Administration Hydromorphone HCl 0.5 mg 01/27/22 18:02 Hydromorphone 1 Mg/1 Ml Inj IV Q23H PRN Pain , Severe (7-10) Sodium Chloride 1,000 mls @ 125 mls/hr 01/27/22 18:15 Nacl 0.9% 1000 Ml IV DIRECT TAYE Ondansetron HCl 4 mg 01/27/22 18:02 01/28/22 00:06 Ondansetron 4 Mg/2 Ml Inj IV 4 mg Q8H PRN Administration Nausea And Vomiting Oxycodone/Acetaminophen 1 tab 01/27/22 18:02 Oxycodone /Acetaminophen 5-325mg Tab PO Q26H PRN Pain, Moderate (4-6) Quetiapine Fumarate 25 mg 01/28/22 22:00 01/30/22 09:06 Quetiapine 25 Mg Tab PO 25 mg BID TAYE Administration Quetiapine Fumarate 50 mg 01/28/22 22:00 01/29/22 23:46 Quetiapine 25 Mg Tab PO 50 mg QHS TAYE Administration Sodium Chloride 10 ml 01/27/22 22:00 01/30/22 09:07 Sodium Chloride 0.9% 10 Ml Flush Syringe IV 10 ml BID TAYE Administration Sodium Chloride 10 ml 01/27/22 18:02 Sodium Chloride 0.9% 10 Ml Flush Syringe IV PRN PRN LINE FLUSH
[2022-01-30] MEDS: SODIUM CHLORIDE 0.9% 1000 ML 1,000 ML IV SCH ×2 (15:12→22:17)
[2022-01-31] MEDS: SODIUM CHLORIDE 0.9% 1000 ML 1,000 ML IV SCH ×2 (04:42→14:21)
--- NOTE | 2022-01-31 09:06 | Progress Note ---
Assessment and Plan Assessment and plan: 36 YO Male with HIV, Nicotine Dependence, PSA presents to ED for evaluation of a suicide attempt. 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 Patient states he was trying to kill himself.\ Suicidal attempt/ideation Intentional drug overdose Bipolar disorder HIV 01/28/2022. Continue 1013. Patient is s/p activated charcoal. Await ps ychiatric evaluation. 01/29/2022. The patient continues to endorse suicidal ideation and hallucinat ions. The patient is homeless, stating he needs help with placement and rehab. and if this needs are not met he will continue to being suicidal. Cont. 1013. 01/30/2022. Continue 1013 and supportive care. Await case management follow-up for discharge disposition. Psychiatry following 01/31/2022. We will follow-up with case management for discharge disposition. The patient is homeless, stating he needs help with placement and rehab. The patient reports that if these needs are not met, he will continue to being suicidal. Continue 1013 History Interval history: No new issues overnight Hospitalist Physical - Constitutional Vitals: Temp Pulse Resp BP Pulse Ox 98.4 F 97 H 16 118/72 97 01/31/22 05:30 01/31/22 05:30 01/31/22 05:30 01/31/22 05:30 01/31/22 05:30 General appearance: Present: no acute distress - EENT Eyes: Present: PERRL, EOM intact ENT: hearing intact, clear oral mucosa, dentition normal - Neck Neck: Present: supple, normal ROM - Respiratory Respiratory effort: normal Respiratory: bilateral: CTA - Cardiovascular Rhythm: regular Heart Sounds: Present: S1 & S2. Absent: gallop, rub - Extremities Extremities: no ischemia, No edema, Full ROM - Abdominal General gastrointestinal: soft, non-tender, non-distended, normal bowel sounds - Integumentary Integumentary: Present: clear, warm, dry - Neurologic Neurologic: CNII-XII intact, moves all extremities HEART Score - HEART Score Troponin: Troponin T < 0.010 ng/mL (0.00-0.029) 01/27/22 17:00 Results - Labs CBC & Chem 7: 01/30/22 07:18 01/30/22 07:18 Labs: Laboratory Last Values WBC 5.9 K/mm3 (4.5-11.0) 01/30/22 07:18 RBC 5.17 M/mm3 (3.65-5.03) H 01/30/22 07:18 Hgb 15.6 gm/dl (11.8-15.2) H 01/30/22 07:18 Hct 47.0 % (35.5-45.6) H 01/30/22 07:18 MCV 91 fl (84-94) 01/30/22 07:18 MCH 30 pg (28-32) 01/30/22 07:18 MCHC 33 % (32-34) 01/30/22 07:18 RDW 14.0 % (13.2-15.2) 01/30/22 07:18 Plt Count 229 K/mm3 (140-440) 01/30/22 07:18 Lymph % (Auto) 29.5 % (13.4-35.0) 01/30/22 07:18 [place] % (Auto) 7.0 % (0.0-7.3) 01/30/22 07:18 Eos % (Auto) 2.6 % (0.0-4.3) 01/30/22 07:18 Baso % (Auto) 0.4 % (0.0-1.8) 01/30/22 07:18 Lymph # (Auto) 1.7 K/mm3 (1.2-5.4) 01/30/22 07:18 [place] # (Auto) 0.4 K/mm3 (0.0-0.8) 01/30/22 07:18 Eos # (Auto) 0.2 K/mm3 (0.0-0.4) 01/30/22 07:18 Baso # (Auto) 0.0 K/mm3 (0.0-0.1) 01/30/22 07:18 Seg Neutrophils % 60.5 % (40.0-70.0) 01/30/22 07:18 Seg Neutrophils # 3.6 K/mm3 (1.8-7.7) 01/30/22 07:18 PT 14.0 Sec. (12.2-14.9) 01/27/22 15:51 INR 0.97 (0.87-1.13) 01/27/22 15:51 APTT 23.3 Sec. (24.2-36.6) L 01/27/22 15:51 Sodium 140 mmol/L (137-145) 01/30/22 07:18 Potassium 4.3 mmol/L (3.6-5.0) 01/30/22 07:18 Chloride 105.4 mmol/L (98-107) 01/30/22 07:18 Carbon Dioxide 25 mmol/L (22-30) 01/30/22 07:18 Anion Gap 14 mmol/L 01/30/22 07:18 BUN 6 mg/dL (9-20) L 01/30/22 07:18 Creatinine 1.2 mg/dL (0.8-1.3) 01/30/22 07:18 Estimated GFR > 60 ml/min 01/30/22 07:18 BUN/Creatinine Ratio 5 % 01/30/22 07:18 Glucose 95 mg/dL (75-100) 01/30/22 07:18 Calcium 9.2 mg/dL (8.4-10.2) 01/30/22 07:18 Total Bilirubin 0.40 mg/dL (0.1-1.2) 01/27/22 15:51 AST 13 units/L (5-40) 01/27/22 15:51 ALT 11 units/L (7-56) 01/27/22 15:51 Alkaline Phosphatase 79 units/L (35-129) 01/27/22 15:51 Total Creatine Kinase 212 units/L (55-170) H 01/27/22 17:00 Troponin T < 0.010 ng/mL (0.00-0.029) 01/27/22 17:00 Total Protein 7.7 g/dL (6.3-8.2) 01/27/22 15:51 Albumin 5.1 g/dL (3.9-5) H 01/27/22 15:51 Albumin/Globulin Ratio 2.0 % 01/27/22 15:51 Salicylates < 0.3 mg/dL (2.8-20.0) L 01/27/22 15:51 Urine Opiates Screen Negative 01/27/22 Unknown Urine Methadone Screen Negative 01/27/22 Unknown Acetaminophen 5.0 ug/mL (10.0-30.0) L 01/27/22 15:51 Ur Barbiturates Screen Negative 01/27/22 Unknown Ur Phencyclidine Scrn Negative 01/27/22 Unknown Ur Amphetamines Screen Positive 01/27/22 Unknown U Benzodiazepines Scrn Negative 01/27/22 Unknown Urine Cocaine Screen Positive 01/27/22 Unknown U Marijuana (THC) Screen Positive 01/27/22 Unknown Drugs of Abuse Note Disclamer 01/27/22 Unknown Plasma/Serum Alcohol < 0.01 % (0-0.07) 01/27/22 15:51 Steen/IV: Voiding Method Toilet Active Medications - Current Medications Current Medications: Generic Name Dose Route Start Last Admin Trade Name Freq PRN Reason Stop Dose Admin Acetaminophen 650 mg 01/27/22 18:02 Acetaminophen 325 Mg Tab PO Q4H PRN Pain MILD(1-3)/Fever >100.5/ Albuterol 2.5 mg 01/27/22 18:02 Albuterol 2.5 Mg/3 Ml Nebu IH Q4HRT PRN Shortness Of Breath Divalproex Sodium 125 mg 01/28/22 22:00 01/30/22 22:[address] 125 Mg Tab PO 125 mg BID TAYE Administration Hydromorphone HCl 0.5 mg 01/27/22 18:02 Hydromorphone 1 Mg/1 Ml Inj IV Q23H PRN Pain , Severe (7-10) Sodium Chloride 1,000 mls @ 125 mls/hr 01/27/22 18:15 01/31/22 04:42 Nacl 0.9% 1000 Ml IV 125 mls/hr DIRECT TAYE Administration Ondansetron HCl 4 mg 01/27/22 18:02 01/28/22 00:06 Ondansetron 4 Mg/2 Ml Inj IV 4 mg Q8H PRN Administration Nausea And Vomiting Oxycodone/Acetaminophen 1 tab 01/27/22 18:02 Oxycodone /Acetaminophen 5-325mg Tab PO Q26H PRN Pain, Moderate (4-6) Quetiapine Fumarate 25 mg 01/28/22 22:00 01/30/22 22:16 Quetiapine 25 Mg Tab PO Not Given BID TAYE Quetiapine Fumarate 50 mg 01/28/22 22:00 01/30/22 22:16 Quetiapine 25 Mg Tab PO 50 mg QHS TAYE Administration Sodium Chloride 10 ml 01/27/22 22:00 01/30/22 22:16 Sodium Chloride 0.9% 10 Ml Flush Syringe IV 10 ml BID TAYE Administration Sodium Chloride 10 ml 01/27/22 18:02 Sodium Chloride 0.9% 10 Ml Flush Syringe IV PRN PRN LINE FLUSH
[2022-01-31] MEDS: DIVALPROEX DR 125 MG TAB PO SCH ×2 (10:03→22:22)
[2022-01-31] MEDS: QUEtiapine 25 MG TAB PO SCH ×3 (10:04→22:27)
--- NOTE | 2022-01-31 10:59 | Progress Note ---
Subjective - Reason for Consult Consult date: 01/31/22 Reason for consult: Suicidal ideation - Chief Complaint Chief complaint: The patient was seen this morning. He reports feeling better. He continues to endorse suicidal ideation but denies hallucinations. REVIEW OF SYSTEMS Constitutional: Negative for weight loss ENT: Negative for stridor Respiratory: Negative for cough or hemoptysis All other systems reviewed and are negative MENTAL STATUS EXAMINATION General Appearance and Behavior: Age appropriate, good hygiene, wearing appropriate clothes, good eye contact, anxious, cooperative Cooperation: Participating/engaged Psychomotor Behavior: Psychomotor normal Mood:Depressed Affect and affective range: congruent with stated mood Thought Process: Goal directed Thought Content: Reality oriented Speech: Normal tone and pace Suicidal Ideation:yes Homicidal Ideation: Denies Hallucinations: Denies Delusions: None Impulse Control: Limited Insight and Judgment: Limited insight and judgment Memory: Limited Attention: attentive Orientation: Alert, oriented Diagnoses: Bipolar Disorder Treatment Plan 1013 Continue home meds PSYCHOTHERAPY: Supportive psychotherapy provided MEDICAL: Per primary team DELIRIUM PRECAUTIONS: Please re-orient patient frequently, keep lights on during the day, and minimize benzodiazepines and opiates as these medications could worsen patient's confusion. 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 Will follow. Thanks. Thank you for the consult. Case staffed with Dr. Schneider Medications and Allergies Mental Status Exam - Vital signs Last Vital Signs Temp 98.4 F 01/31/22 05:30 Pulse 97 H 01/31/22 05:30 Resp 18 01/31/22 08:00 BP 118/72 01/31/22 05:30 Pulse Ox 99 01/31/22 08:00
[2022-01-31 11:02] LABS: BUN/Creatinine Ratio 6; Blood Urea Nitrogen 6 mg/dL (9-20); Hemolysis Index 8
[2022-02-01 09:20] LABS: Basophils % (Auto) 0.6 % (0.0-1.8); Eosinophils # (Auto) 0.1 K/mm3 (0.0-0.4); Hematocrit 49.6 % (35.5-45.6); Hemoglobin 16.6 gm/dl (11.8-15.2); Lymphocytes % (Auto) 28.5 % (13.4-35.0); Mean Corpuscular HGB Conc 33 % (32-34); Mean Corpuscular Volume 91 fl (84-94); Monocytes # (Auto) 0.5 K/mm3 (0.0-0.8); Monocytes % (Auto) 7.8 % (0.0-7.3); Platelet Count 242 K/mm3 (140-440); Red Blood Count 5.47 M/mm3 (3.65-5.03)
[2022-02-01 09:42] LABS: BUN/Creatinine Ratio 6; Blood Urea Nitrogen 6 mg/dL (9-20); Calcium 10.1 mg/dL (8.4-10.2); Hemolysis Index 11
--- NOTE | 2022-02-01 10:03 | Progress Note ---
Assessment and Plan Assessment and plan: 36 YO Male with HIV, Nicotine Dependence, PSA presents to ED for evaluation of a suicide attempt. 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 Patient states he was trying to kill himself.\ Suicidal attempt/ideation Intentional drug overdose Bipolar disorder Constipation HIV 01/28/2022. Continue 1013. Patient is s/p activated charcoal. Await psychiatric evaluation. 01/29/2022. The patient continues to endorse suicidal ideation and hallucinations. The patient is homeless, stating he needs help with placement and rehab. and if this needs are not met he will continue to being suicidal. Cont. 1013. 01/30/2022. Continue 1013 and supportive care. Await case management follow-up for discharge disposition. Psychiatry following 01/31/2022. We will follow-up with case management for discharge disposition. The patient is homeless, stating he needs help with placement and rehab. The patient reports that if these needs are not met, he will continue to being suicidal. Continue 1013 02/01: Patient seen and examined medically cleared for inpatient psych, no new complaints. Restarted his home HIV MEDS, Biktarvy 1 tab daily. He states he gets it from the health department. He reports compliance with his medications. Discussed with case management from the psych team. Lifestyle choices counseling provided for 15 minutes. Including tobacco cocaine and amphetamine cessation. Patient verbalized understanding. When asked about his family he says that they also have dental problems. History Interval history: Patient seen and examined no new complaints at this time. Is requesting psych placement. Hospitalist Physical - Physical exam Narrative exam: VITAL SIGNS: Reviewed. GENERAL: The patient appears normally developed, Vital signs as documented. HEAD: No signs of head trauma. EYES: Pupils are equal. Extraocular motions intact. EARS: Hearing grossly intact. MOUTH: Oropharynx is normal. NECK: No adenopathy, no JVD. CHEST: Chest with clear breath sounds bilaterally. No wheezes, rales, or rhonchi. CARDIAC: Regular rate and rhythm. S1 and S2, without murmurs, gallops, or rubs. VASCULAR: No Edema. Peripheral pulses normal and equal in all extremities. ABDOMEN: Soft, non tender and non distended. No rebound or guarding, and no masses palpated. Bowel Sounds normal. MUSCULOSKELETAL: Good range of motion of all major joints. Extremities without clubbing, cyanosis or edema. NEUROLOGIC EXAM: Alert and oriented x 3 No focal sensory or strength deficits. Speech normal. Follows commands. PSYCHIATRIC: [facility]. SKIN: detail exam as documented in skin assessment, multiple tattoos - Constitutional Vitals: Temp Pulse Resp BP Pulse Ox 97.6 F 75 18 143/90 99 01/31/22 22:23 01/31/22 22:23 01/31/22 22:23 01/31/22 22:23 01/31/22 22:23 General appearance: Present: no acute distress HEART Score - HEART Score Troponin: Troponin T < 0.010 ng/mL (0.00-0.029) 01/27/22 17:00 Results - Labs CBC & Chem 7: 02/01/22 09:05 02/01/22 09:05 Labs: Laboratory Last Values WBC 6.8 K/mm3 (4.5-11.0) 02/01/22 09:05 RBC 5.47 M/mm3 (3.65-5.03) H 02/01/22 09:05 Hgb 16.6 gm/dl (11.8-15.2) H 02/01/22 09:05 Hct 49.6 % (35.5-45.6) H 02/01/22 09:05 MCV 91 fl (84-94) 02/01/22 09:05 MCH 30 pg (28-32) 02/01/22 09:05 MCHC 33 % (32-34) 02/01/22 09:05 RDW 14.0 % (13.2-15.2) 02/01/22 09:05 Plt Count 242 K/mm3 (140-440) 02/01/22 09:05 Lymph % (Auto) 28.5 % (13.4-35.0) 02/01/22 09:05 [place] % (Auto) 7.8 % (0.0-7.3) H 02/01/22 09:05 Eos % (Auto) 2.0 % (0.0-4.3) 02/01/22 09:05 Baso % (Auto) 0.6 % (0.0-1.8) 02/01/22 09:05 Lymph # (Auto) 2.0 K/mm3 (1.2-5.4) 02/01/22 09:05 [place] # (Auto) 0.5 K/mm3 (0.0-0.8) 02/01/22 09:05 Eos # (Auto) 0.1 K/mm3 (0.0-0.4) 02/01/22 09:05 Baso # (Auto) 0.0 K/mm3 (0.0-0.1) 02/01/22 09:05 Seg Neutrophils % 61.1 % (40.0-70.0) 02/01/22 09:05 Seg Neutrophils # 4.2 K/mm3 (1.8-7.7) 02/01/22 09:05 PT 14.0 Sec. (12.2-14.9) 01/27/22 15:51 INR 0.97 (0.87-1.13) 01/27/22 15:51 APTT 23.3 Sec. (24.2-36.6) L 01/27/22 15:51 Sodium 141 mmol/L (137-145) 02/01/22 09:05 Potassium 4.1 mmol/L (3.6-5.0) 02/01/22 09:05 Chloride 101.6 mmol/L (98-107) 02/01/22 09:05 Carbon Dioxide 28 mmol/L (22-30) 02/01/22 09:05 Anion Gap 16 mmol/L 02/01/22 09:05 BUN 6 mg/dL (9-20) L 02/01/22 09:05 Creatinine 1.0 mg/dL (0.8-1.3) 02/01/22 09:05 Estimated GFR > 60 ml/min 02/01/22 09:05 BUN/Creatinine Ratio 6 % 02/01/22 09:05 Glucose 66 mg/dL (75-100) L 02/01/22 09:05 Calcium 10.1 mg/dL (8.4-10.2) 02/01/22 09:05 Total Bilirubin 0.40 mg/dL (0.1-1.2) 01/27/22 15:51 AST 13 units/L (5-40) 01/27/22 15:51 ALT 11 units/L (7-56) 01/27/22 15:51 Alkaline Phosphatase 79 units/L (35-129) 01/27/22 15:51 Total Creatine Kinase 212 units/L (55-170) H 01/27/22 17:00 Troponin T < 0.010 ng/mL (0.00-0.029) 01/27/22 17:00 Total Protein 7.7 g/dL (6.3-8.2) 01/27/22 15:51 Albumin 5.1 g/dL (3.9-5) H 01/27/22 15:51 Albumin/Globulin Ratio 2.0 % 01/27/22 15:51 Salicylates < 0.3 mg/dL (2.8-20.0) L 01/27/22 15:51 Urine Opiates Screen Negative 01/27/22 Unknown Urine Methadone Screen Negative 01/27/22 Unknown Acetaminophen 5.0 ug/mL (10.0-30.0) L 01/27/22 15:51 Ur Barbiturates Screen Negative 01/27/22 Unknown Ur Phencyclidine Scrn Negative 01/27/22 Unknown Ur Amphetamines Screen Positive 01/27/22 Unknown U Benzodiazepines Scrn Negative 01/27/22 Unknown Urine Cocaine Screen Positive 01/27/22 Unknown U Marijuana (THC) Screen Positive 01/27/22 Unknown Drugs of Abuse Note Disclamer 01/27/22 Unknown Plasma/Serum Alcohol < 0.01 % (0-0.07) 01/27/22 15:51 Steen/IV: Voiding Method Toilet Active Medications - Current Medications Current Medications: Generic Name Dose Route Start Last Admin Trade Name Freq PRN Reason Stop Dose Admin Acetaminophen 650 mg 01/27/22 18:02 Acetaminophen 325 Mg Tab PO Q4H PRN Pain MILD(1-3)/Fever >100.5/ Albuterol 2.5 mg 01/27/22 18:02 Albuterol 2.5 Mg/3 Ml Nebu IH Q4HRT PRN Shortness Of Breath Divalproex Sodium 125 mg 01/28/22 22:00 01/31/22 22:[address] 125 Mg Tab PO 125 mg BID TAYE Administration Hydromorphone HCl 0.5 mg 01/27/22 18:02 Hydromorphone 1 Mg/1 Ml Inj IV Q23H PRN Pain , Severe (7-10) Sodium Chloride 1,000 mls @ 125 mls/hr 01/27/22 18:15 01/31/22 14:21 Nacl 0.9% 1000 Ml IV 125 mls/hr DIRECT TAYE Administration Ondansetron HCl 4 mg 01/27/22 18:02 01/28/22 00:06 Ondansetron 4 Mg/2 Ml Inj IV 4 mg Q8H PRN Administration Nausea And Vomiting Oxycodone/Acetaminophen 1 tab 01/27/22 18:02 Oxycodone /Acetaminophen 5-325mg Tab PO Q26H PRN Pain, Moderate (4-6) Quetiapine Fumarate 25 mg 01/28/22 22:00 01/31/22 22:27 Quetiapine 25 Mg Tab PO 25 mg BID TAYE Administration Quetiapine Fumarate 50 mg 01/28/22 22:00 01/31/22 22:23 Quetiapine 25 Mg Tab PO 50 mg QHS TAYE Administration Sodium Chloride 10 ml 01/27/22 22:00 01/31/22 22:25 Sodium Chloride 0.9% 10 Ml Flush Syringe IV 10 ml BID TAYE Administration Sodium Chloride 10 ml 01/27/22 18:02 Sodium Chloride 0.9% 10 Ml Flush Syringe IV PRN PRN LINE FLUSH
--- NOTE | 2022-02-01 10:05 | Discharge Summary ---
Providers - Providers Date of Admission: 01/27/22 18:03 Attending physician: SAVANNA WHITAKER MD 01/27/22 18:06 Consult to Mental Health [CONS] Routine Reason For Exam: suicide attempt 01/29/22 10:00 Consult to Case Management [CONS] Routine Services Needed at Discharge: Realtime Court Reporter Notified:: irving Primary care physician: DEVAUGHN JUAREZ Hospitalization Condition: Stable Hospital course: 36 YO Male with HIV, Nicotine Dependence, PSA presents to ED for evaluation of a suicide attempt. 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 Patient states he was trying to kill himself.\ Suicidal attempt/ideation Intentional drug overdose Bipolar disorder Constipation HIV 01/28/2022. Continue 1013. Patient is s/p activated charcoal. Await psychiatric evaluation. 01/29/2022. The patient continues to endorse suicidal ideation and hallucinations. The patient is homeless, stating he needs help with placement and rehab. and if this needs are not met he will continue to being suicidal. Cont. 1013. 01/30/2022. Continue 1013 and supportive care. Await case management follow-up for discharge disposition. Psychiatry following 01/31/2022. We will follow-up with case management for discharge disposition. The patient is homeless, stating he needs help with placement and rehab. The patient reports that if these needs are not met, he will continue to being suicidal. Continue 1013 02/01: Patient is medically stable for discharge to inpatient psych. Restarted his home HIV MEDS, Biktarvy 1 tab daily. He states he gets it from the health department Dis[facility] Exam - Constitutional Vitals: Temp Pulse Resp BP Pulse Ox 97.6 F 75 18 143/90 99 01/31/22 22:23 01/31/22 22:23 01/31/22 22:23 01/31/22 22:23 01/31/22 22:23 Plan Activity: advance as tolerated, fall precautions Diet: low fat Special Instructions: record daily weights, record daily BP diary Follow up with: DEVAUGHN JUAREZ MD [Primary Care Provider] - 7 Days CANDE MOLINA MD [Staff Physician] - 7 Days Prescriptions: QUEtiapine [SEROquel] 50 mg PO QHS #14 tablet Bictegrav/Emtricit/Tenofov Ala [Biktarvy 50-200-25 mg Tablet] 1 each PO DAILY #30 tab Divalproex [Mariel Perez] 125 mg PO BID #30 tablet QUEtiapine [SEROquel] 25 mg PO BID #60 tablet
[2022-02-01] MEDS: QUEtiapine 25 MG TAB PO SCH ×3 (10:43→22:52)
[2022-02-01] MEDS: DIVALPROEX DR 125 MG TAB PO SCH ×2 (10:43→22:51)
[2022-02-01] MEDS ORDERED: DOLUTEGRAVIR 50 MG, TENOFOVIR 300 MG, EMTRICITABINE 200 MG PO SCH (11:00)
[2022-02-01] MEDS: EMTRICITABINE 200 MG CAP PO SCH (11:17)
[2022-02-01] MEDS: DOLUTEGRAVIR 50 MG TAB PO SCH (11:17)
[2022-02-01] MEDS: TENOFOVIR 300 MG TAB PO SCH (11:17)
[2022-02-01 12:04] LABS: Bilirubin,Urine NEG (Negative); Blood,Urine NEG (Negative); Color,Urine Straw (Yellow); Protein,Urine <15 mg/dL mg/dL (Negative); Urobilinogen,Urine < 2.0 mg/dL (<2.0)
[2022-02-02] MEDS: TENOFOVIR 300 MG TAB PO SCH ×3 (09:35→10:22)
[2022-02-02] MEDS: DOLUTEGRAVIR 50 MG TAB PO SCH ×3 (09:36→10:22)
[2022-02-02] MEDS: DIVALPROEX DR 125 MG TAB PO SCH ×2 (09:36→23:08)
[2022-02-02] MEDS: EMTRICITABINE 200 MG CAP PO SCH ×3 (09:36→10:22)
[2022-02-02] MEDS: QUEtiapine 25 MG TAB PO SCH ×3 (09:36→23:09)
--- NOTE | 2022-02-02 11:33 | Progress Note ---
Assessment and Plan Assessment and plan: 36 YO Male with HIV, Nicotine Dependence, PSA presents to ED for evaluation of a suicide attempt. 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 Patient states he was trying to kill himself.\ Suicidal attempt/ideation Intentional drug overdose Bipolar disorder Constipation HIV 01/28/2022. Continue 1013. Patient is s/p activated charcoal. Await psychiatric evaluation. 01/29/2022. The patient continues to endorse suicidal ideation and hallucinations. The patient is homeless, stating he needs help with placement and rehab. and if this needs are not met he will continue to being suicidal. Cont. 1013. 01/30/2022. Continue 1013 and supportive care. Await case management follow-up for discharge disposition. Psychiatry following 01/31/2022. We will follow-up with case management for discharge disposition. The patient is homeless, stating he needs help with placement and rehab. The patient reports that if these needs are not met, he will continue to being suicidal. Continue 1013 02/01: Patient seen and examined medically cleared for inpatient psych, no new complaints. Restarted his home HIV MEDS, Biktarvy 1 tab daily. He states he gets it from the health department. He reports compliance with his medications. Discussed with case management from the psych team. Lifestyle choices counseling provided for 15 minutes. Including tobacco cocaine and amphetamine cessation. Patient verbalized understanding. When asked about his family he says that they also have dental problems. 02/02: Patient clinically stable awaiting placement. Remains medically stable for discharge to inpatient psych. He is compliant with all his medications here History Interval history: Patient seen and examined no new complaints at this time. He is agreeable to taking antiviral now that he understands that this the same medication but broken down to his components is requesting psych placement. Hospitalist Physical - Physical exam Narrative exam: VITAL SIGNS: Reviewed. GENERAL: The patient appears normally developed, Vital signs as documented. HEAD: No signs of head trauma. EYES: Pupils are equal. Extraocular motions intact. EARS: Hearing grossly intact. MOUTH: Oropharynx is normal. NECK: No adenopathy, no JVD. CHEST: Chest with clear breath sounds bilaterally. No wheezes, rales, or rhonchi. CARDIAC: Regular rate and rhythm. S1 and S2, without murmurs, gallops, or rubs. VASCULAR: No Edema. Peripheral pulses normal and equal in all extremities. ABDOMEN: Soft, non tender and non distended. No rebound or guarding, and no masses palpated. Bowel Sounds normal. MUSCULOSKELETAL: Good range of motion of all major joints. Extremities without clubbing, cyanosis or edema. NEUROLOGIC EXAM: Alert and oriented x 3 No focal sensory or strength deficits. Speech normal. Follows commands. PSYCHIATRIC: [facility]. SKIN: detail exam as documented in skin assessment, multiple tattoos - Constitutional Vitals: Temp Pulse Resp BP Pulse Ox 98.6 F 86 18 138/76 100 02/02/22 05:03 02/02/22 05:03 02/02/22 08:00 02/02/22 05:03 02/02/22 08:00 General appearance: Present: no acute distress HEART Score - HEART Score Troponin: Troponin T < 0.010 ng/mL (0.00-0.029) 01/27/22 17:00 Results - Labs CBC & Chem 7: 02/01/22 09:05 02/01/22 09:05 Labs: Laboratory Last Values WBC 6.8 K/mm3 (4.5-11.0) 02/01/22 09:05 RBC 5.47 M/mm3 (3.65-5.03) H 02/01/22 09:05 Hgb 16.6 gm/dl (11.8-15.2) H 02/01/22 09:05 Hct 49.6 % (35.5-45.6) H 02/01/22 09:05 MCV 91 fl (84-94) 02/01/22 09:05 MCH 30 pg (28-32) 02/01/22 09:05 MCHC 33 % (32-34) 02/01/22 09:05 RDW 14.0 % (13.2-15.2) 02/01/22 09:05 Plt Count 242 K/mm3 (140-440) 02/01/22 09:05 Lymph % (Auto) 28.5 % (13.4-35.0) 02/01/22 09:05 [place] % (Auto) 7.8 % (0.0-7.3) H 02/01/22 09:05 Eos % (Auto) 2.0 % (0.0-4.3) 02/01/22 09:05 Baso % (Auto) 0.6 % (0.0-1.8) 02/01/22 09:05 Lymph # (Auto) 2.0 K/mm3 (1.2-5.4) 02/01/22 09:05 [place] # (Auto) 0.5 K/mm3 (0.0-0.8) 02/01/22 09:05 Eos # (Auto) 0.1 K/mm3 (0.0-0.4) 02/01/22 09:05 Baso # (Auto) 0.0 K/mm3 (0.0-0.1) 02/01/22 09:05 Seg Neutrophils % 61.1 % (40.0-70.0) 02/01/22 09:05 Seg Neutrophils # 4.2 K/mm3 (1.8-7.7) 02/01/22 09:05 PT 14.0 Sec. (12.2-14.9) 01/27/22 15:51 INR 0.97 (0.87-1.13) 01/27/22 15:51 APTT 23.3 Sec. (24.2-36.6) L 01/27/22 15:51 Sodium 141 mmol/L (137-145) 02/01/22 09:05 Potassium 4.1 mmol/L (3.6-5.0) 02/01/22 09:05 Chloride 101.6 mmol/L (98-107) 02/01/22 09:05 Carbon Dioxide 28 mmol/L (22-30) 02/01/22 09:05 Anion Gap 16 mmol/L 02/01/22 09:05 BUN 6 mg/dL (9-20) L 02/01/22 09:05 Creatinine 1.0 mg/dL (0.8-1.3) 02/01/22 09:05 Estimated GFR > 60 ml/min 02/01/22 09:05 BUN/Creatinine Ratio 6 % 02/01/22 09:05 Glucose 66 mg/dL (75-100) L 02/01/22 09:05 Calcium 10.1 mg/dL (8.4-10.2) 02/01/22 09:05 Total Bilirubin 0.40 mg/dL (0.1-1.2) 01/27/22 15:51 AST 13 units/L (5-40) 01/27/22 15:51 ALT 11 units/L (7-56) 01/27/22 15:51 Alkaline Phosphatase 79 units/L (35-129) 01/27/22 15:51 Total Creatine Kinase 212 units/L (55-170) H 01/27/22 17:00 Troponin T < 0.010 ng/mL (0.00-0.029) 01/27/22 17:00 Total Protein 7.7 g/dL (6.3-8.2) 01/27/22 15:51 Albumin 5.1 g/dL (3.9-5) H 01/27/22 15:51 Albumin/Globulin Ratio 2.0 % 01/27/22 15:51 Urine Color Straw (Yellow) 02/01/22 11:15 Urine Turbidity Clear (Clear) 02/01/22 11:15 Urine pH 8.0 (5.0-7.0) H 02/01/22 11:15 Ur Specific [place] 1.010 (1.003-1.030) 02/01/22 11:15 Urine Protein <15 mg/dl mg/dL (Negative) 02/01/22 11:15 Urine Glucose (UA) Neg mg/dL (Negative) 02/01/22 11:15 Urine Ketones Neg mg/dL (Negative) 02/01/22 11:15 Urine Blood Neg (Negative) 02/01/22 11:15 Urine Nitrite Neg (Negative) 02/01/22 11:15 Urine Bilirubin Neg (Negative) 02/01/22 11:15 Urine Urobilinogen < 2.0 mg/dL (<2.0) 02/01/22 11:15 Ur Leukocyte Esterase Neg (Negative) 02/01/22 11:15 Urine WBC (Auto) Not Reportable 02/01/22 11:15 Urine RBC (Auto) Not Reportable 02/01/22 11:15 Salicylates < 0.3 mg/dL (2.8-20.0) L 01/27/22 15:51 Urine Opiates Screen Negative 01/27/22 Unknown Urine Methadone Screen Negative 01/27/22 Unknown Acetaminophen 5.0 ug/mL (10.0-30.0) L 01/27/22 15:51 Ur Barbiturates Screen Negative 01/27/22 Unknown Ur Phencyclidine Scrn Negative 01/27/22 Unknown Ur Amphetamines Screen Positive 01/27/22 Unknown U Benzodiazepines Scrn Negative 01/27/22 Unknown Urine Cocaine Screen Positive 01/27/22 Unknown U Marijuana (THC) Screen Positive 01/27/22 Unknown Drugs of Abuse Note Disclamer 01/27/22 Unknown Plasma/Serum Alcohol < 0.01 % (0-0.07) 01/27/22 15:51 SARS-CoV-2 (PCR) Negative (Negative) 02/01/22 11:45 Steen/IV: Voiding Method Toilet Active Medications - Current Medications Current Medications: Generic Name Dose Route Start Last Admin Trade Name Freq PRN Reason Stop Dose Admin Acetaminophen 650 mg 01/27/22 18:02 Acetaminophen 325 Mg Tab PO Q4H PRN Pain MILD(1-3)/Fever >100.5/ Albuterol 2.5 mg 01/27/22 18:02 Albuterol 2.5 Mg/3 Ml Nebu IH Q4HRT PRN Shortness Of Breath Divalproex Sodium 125 mg 01/28/22 22:00 02/02/22 09:[address] 125 Mg Tab PO 125 mg BID TAYE Administration Dolutegravir Sodium 50 mg 02/01/22 12:00 02/02/22 10:22 Dolutegravir 50 Mg Tab PO 50 mg DAILY TAYE Administration Emtricitabine 200 mg 02/01/22 12:00 02/02/22 10:22 Emtricitabine 200 Mg Cap PO 200 mg QDAY TAYE Administration Hydromorphone HCl 0.5 mg 01/27/22 18:02 Hydromorphone 1 Mg/1 Ml Inj IV Q23H PRN Pain , Severe (7-10) Sodium Chloride 1,000 mls @ 125 mls/hr 01/27/22 18:15 01/31/22 14:21 Nacl 0.9% 1000 Ml IV 125 mls/hr DIRECT TAYE Administration Ondansetron HCl 4 mg 01/27/22 18:02 01/28/22 00:06 Ondansetron 4 Mg/2 Ml Inj IV 4 mg Q8H PRN Administration Nausea And Vomiting Oxycodone/Acetaminophen 1 tab 01/27/22 18:02 Oxycodone /Acetaminophen 5-325mg Tab PO Q26H PRN Pain, Moderate (4-6) Quetiapine Fumarate 25 mg 01/28/22 22:00 02/02/22 09:36 Quetiapine 25 Mg Tab PO 25 mg BID TAYE Administration Quetiapine Fumarate 50 mg 01/28/22 22:00 02/01/22 22:52 Quetiapine 25 Mg Tab PO 50 mg QHS TAYE Administration Sodium Chloride 10 ml 01/27/22 22:00 02/02/22 09:36 Sodium Chloride 0.9% 10 Ml Flush Syringe IV 10 ml BID TAYE Administration Sodium Chloride 10 ml 01/27/22 18:02 Sodium Chloride 0.9% 10 Ml Flush Syringe IV PRN PRN LINE FLUSH Tenofovir Disoproxil Fumarate 300 mg 02/01/22 12:00 02/02/22 10:22 Tenofovir 300 Mg Tab PO 300 mg QDAY TAYE Administration
[2022-02-03] MEDS: QUEtiapine 25 MG TAB PO SCH (09:15)
[2022-02-03] MEDS: DOLUTEGRAVIR 50 MG TAB PO SCH (09:16)
[2022-02-03] MEDS: DIVALPROEX DR 125 MG TAB PO SCH (09:16)
[2022-02-03] MEDS: TENOFOVIR 300 MG TAB PO SCH (09:16)
[2022-02-03] MEDS: EMTRICITABINE 200 MG CAP PO SCH (09:18)
--- NOTE | 2022-02-03 12:21 | Progress Note ---
Subjective - Reason for Consult Consult date: 02/03/22 Reason for consult: SI - Chief Complaint Chief complaint: The patient was seen this morning. He reports feeling better. The patient is homeless and he is to requesting for placement. In my profession opinion, the patient has achieved the maximum benefit of inpatient treatment at this time. Continue inpatient treatment is contraindicated as it will reinforce maladaptive behaviors. REVIEW OF SYSTEMS Constitutional: Negative for weight loss ENT: Negative for stridor Respiratory: Negative for cough or hemoptysis All other systems reviewed and are negative MENTAL STATUS EXAMINATION General Appearance and Behavior: Age appropriate, good hygiene, wearing appropriate clothes, good eye contact, anxious, cooperative Cooperation: Participating/engaged Psychomotor Behavior: Psychomotor normal Mood:Ok Affect and affective range: congruent with stated mood Thought Process: Goal directed Thought Content: Reality oriented Speech: Normal tone and pace Suicidal Ideation:Passive Homicidal Ideation: Denies Hallucinations: Denies Delusions: None Impulse Control: Limited Insight and Judgment: Limited insight and judgment Memory: Limited Attention: attentive Orientation: Alert, oriented Diagnoses: Bipolar Disorder Treatment Plan Dc 1013 Case management Continue home meds Continue Depakote 125mg po BID Continue Seroquel 50mg po QHS PSYCHOTHERAPY: Supportive psychotherapy provided MEDICAL: Per primary team DELIRIUM PRECAUTIONS: Please re-orient patient frequently, keep lights on during the day, and minimize benzodiazepines and opiates as these medications could worsen patient's confusion. CALL SPECIALIST: Per medical team DISPOSITION: Do not recommend acute psychiatric inpatient treatment. Electrical Timing Device Calibrator will provide patient with psychiatric outpatient resources. Will sign off. Thanks. Thank you for the consult. Case staffed with Dr. Schneider Medications and Allergies Mental Status Exam - Vital signs Last Vital Signs Temp 97.6 F 02/03/22 04:15 Pulse 61 02/03/22 04:15 Resp 16 02/03/22 04:15 BP 121/71 02/03/22 04:15 Pulse Ox 98 02/03/22 08:07
[2022-02-03 12:57] VITALS: BP 129/80
--- NOTE | 2022-02-03 15:29 | Discharge Summary ---
Providers - Providers Date of Admission: 01/27/22 18:03 Date of discharge: 02/03/22 Attending physician: RIANA RUIZ 01/27/22 18:06 Consult to Mental Health [CONS] Routine Reason For Exam: suicide attempt 01/29/22 10:00 Consult to Case Management [CONS] Routine Services Needed at Discharge: Drop Wirer Notified:: irving Primary care physician: DEVAUGHN JUAREZ Hospitalization Condition: Stable Hospital course: Hospitalization Condition: Stable Hospital course: 36 YO Male with HIV, Nicotine Dependence, PSA presents to ED for evaluation of a suicide attempt. 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 Patient states he was trying to kill himself.\ Suicidal attempt/ideation Intentional drug overdose Bipolar disorder Constipation HIV 01/28/2022. Continue 1013. Patient is s/p activated charcoal. Await psychiatric evaluation. 01/29/2022. The patient continues to endorse suicidal ideation and hallucinations. The patient is homeless, stating he needs help with placement and rehab. and if this needs are not met he will continue to being suicidal. Cont. 1013. 01/30/2022. Continue 1013 and supportive care. Await case management follow-up for discharge disposition. Psychiatry following 01/31/2022. We will follow-up with case management for discharge disposition. The patient is homeless, stating he needs help with placement and rehab. The patient reports that if these needs are not met, he will continue to being suicidal. Continue 1013 02/01: Patient is medically stable for discharge to inpatient psych. Restarted his home HIV MEDS, Biktarvy 1 tab daily. He states he gets it from the health department 02/02/22 Patient is medically stable for discharge to inpatient psych. Restarted his home HIV MEDS, Biktarvy 1 tab daily. He states he gets it from the health department Disposition: 01 HOME / SELF CARE / HOMELESS Final Discharge Diagnosis (Prints w/discharge instructions): Intentional drug overdose. Suicidal ideation. Bipolar disorder. Constipation. HIV - Discharge Diagnoses (1) Advance care planning Status: Acute (2) Intentional drug overdose Status: Acute (3) Suicide attempt Status: Acute (4) HIV (human immunodeficiency virus infection) Status: Acute (5) DVT prophylaxis Status: Acute Core Measure Documentation - Palliative Care Palliative Care/ Comfort Measures: Not Applicable - Core Measures Any of the following diagnoses?: none Exam - Constitutional Vitals: Temp Pulse Resp BP Pulse Ox 98.1 F 110 H 18 129/80 97 02/03/22 12:50 02/03/22 12:50 02/03/22 12:50 02/03/22 12:50 02/03/22 12:50 General appearance: Present: no acute distress, well-nourished - EENT Eyes: Present: PERRL ENT: hearing intact, clear oral mucosa - Neck Neck: Present: supple, normal ROM - Respiratory Respiratory effort: normal Respiratory: bilateral: CTA - Cardiovascular Heart rate: 78 Rhythm: regular Heart Sounds: Present: S1 & S2. Absent: rub, click - Extremities Extremities: pulses symmetrical, No edema Peripheral Pulses: within normal limits - Abdominal General gastrointestinal: Present: soft, non-tender, non-distended, normal bowel sounds Male genitourinary: Present: normal - Integumentary Integumentary: Present: clear, warm, dry - Musculoskeletal Musculoskeletal: gait normal, strength equal bilaterally - Psychiatric Psychiatric: appropriate mood/affect, intact judgment & insight - Neurologic Neurologic: CNII-XII intact, moves all extremities Plan Activity: no restrictions Diet: regular Follow up with: DEVAUGHN JUAREZ MD [Primary Care Provider] - 7 Days CANDE MOLINA MD [Staff Physician] - 7 Days Prescriptions: Bictegrav/Emtricit/Tenofov Ala [Biktarvy 50-200-25 mg Tablet] 1 each PO DAILY #[address] [Depjermainete ] 125 mg PO BID #30 tablet QUEtiapine [SEROquel] 50 mg PO QHS #14 tablet QUEtiapine [SEROquel] 25 mg PO BID #60 tablet
== END 2022-02-03 14:15 | disposition home or self-care (01) | DRG 918 ==
LOC: ED 14:04 → 3A 18:03
PROVIDERS: ADMIT Internal Medicine; ATTEND Internal Medicine
DX: T50.902A Poisoning by unspecified drugs, medicaments and biological substances, intentional self-harm, initial encounter (principal); B20 Human immunodeficiency virus [HIV] disease; Y92.89 Other specified places as the place of occurrence of the external cause; F17.210 Nicotine dependence, cigarettes, uncomplicated; F31.9 Bipolar disorder, unspecified; K59.00 Constipation, unspecified; Z20.822 Contact with and (suspected) exposure to COVID-19
CPT/HCPCS: 36415; 80048; 80053; 80307; 80320; 81001; 82550; 84484; 85025; 85610; 85730; 93005; 94640; 99285; G0378; G0480; J2405; J7030; U0003

== ENCOUNTER 2022-03-06 02:15 | Emergency (ER) | payer SELFPAY ==
[2022-03-06 02:21] VITALS: BP 144/94
[2022-03-06] MEDS ORDERED: KETOROLAC 30 MG/1 ML INJ IM ONE (04:13)
[2022-03-06] MEDS ORDERED: dexAMETHasone 20 MG/5 ML VIAL IM ONE (04:13)
[2022-03-06] MEDS ORDERED: GABAPENTIN 300 MG CAP PO ONE (04:14)
--- NOTE | 2022-03-06 04:31 | Emergency Department Report ---
ED Neck Pain/Injury HPI - General Chief Complaint: Neck Pain/Injury Stated Complaint: NECK/UPPER BACK PAIN Mode of arrival: Ambulatory Limitations: No Limitations - History of Present Illness Initial Comments: Patient is a 36-year-old -Citizen Of The [place] male with a history of HIV who presents to the ED with complaint of acute onset persistent nontraumatic left- lateral neck pain that radiates to the left shoulder and left upper back for the last 2 weeks. Patient states that he was initially evaluated and treated at another hospital and was given a prescription of Robaxin and naproxen and that he has been taking this medication since then with no relief. Patient states that the pain is constant, persistent and worse with any movement. Patient denies dizziness, syncope, chest pain, shortness of breath, traumatic injury, heavy lifting, numbness and tingling or weakness of upper extremities bilaterally, fall, low back pain, abdominal pain, nausea and vomiting. MD Complaint: neck pain (left lateral), upper back pain (left-sded), other (left lateral shoulder pain) -: week(s) (2) Place: home Radiation: left lateral, left shoulder, upper back (left) Severity: severe, constant Severity scale (0 -10): 8 Quality: sharp, aching Consistency: constant Improves With: none Worsens With: movement of extremity (left arm), movement of neck Context: unknown, other (Woke up with pain) Associated Symptoms: tingling (left lateral neck and shoulder). denies: headache, fever, numbness, vertigo, difficulty walking, swollen glands, difficulty swallowing, nausea, vomiting Treatments Prior to Arrival: Naproxen, prescription pain med (robaxin) - Related Data Previous Rx's Medication Instructions Recorded Last Taken Type Ibuprofen [Motrin 800 MG tab] 800 mg PO Q8HR PRN #30 tablet 01/24/22 Unknown Rx Sulfamethoxazole/Trimethoprim 1 each PO Q12H #20 tab 01/24/22 Unknown Rx [Bactrim DS TAB] Bictegrav/Emtricit/Tenofov Ala 1 each PO DAILY #30 tab 02/01/22 Unknown Rx [Biktarvy 50-200-25 mg Tablet] Divalproex Dr [Depakote Dr] 125 mg PO BID #30 tablet 02/01/22 Unknown Rx QUEtiapine [SEROquel] 25 mg PO BID #60 tablet 02/01/22 Unknown Rx QUEtiapine [SEROquel] 50 mg PO QHS #14 tablet 02/01/22 Unknown Rx Gabapentin 300 mg PO Q8HR #30 capsule 03/06/22 Unknown Rx predniSONE [Deltasone] 60 mg PO QDAY #15 tab 03/06/22 Unknown Rx traMADoL [Ultram] 50 mg PO Q6HR PRN #12 tablet 03/06/22 Unknown Rx Allergies Allergy/AdvReac Type Severity Reaction Status Date / Time amoxicillin Allergy Mild Rash Verified 01/27/22 14:43 ED Review of Systems ROS: Stated complaint: NECK/UPPER BACK PAIN Other details as noted in HPI Constitutional: denies: chills, fever Eyes: denies: eye pain, eye discharge, vision change ENT: denies: ear pain, throat pain Respiratory: denies: cough, shortness of breath, wheezing Cardiovascular: denies: chest pain, palpitations Endocrine: no symptoms reported Gastrointestinal: denies: abdominal pain, nausea, diarrhea Genitourinary: denies: urgency, dysuria Musculoskeletal: arthralgia (Left lateral neck and shoulder pain; left-sided upper posterior thoracic pain). denies: back pain, joint swelling Skin: denies: rash, lesions Neurological: denies: headache, weakness, paresthesias Psychiatric: denies: anxiety, depression Hematological/Lymphatic: denies: easy bleeding, easy bruising ED Past Medical Hx - Past Medical History Hx Congestive Heart Failure: No Hx Diabetes: No Hx Arthritis: No Hx Psychiatric Treatment: No Hx Asthma: No Hx COPD: No Hx HIV: Yes Additional medical history: Heavy tobacco abuse - Social History Smoking Status: Current Every Day Smoker - Medications Home Medications: Home Medications Medication Instructions Recorded Confirmed Last Taken Type Ibuprofen [Motrin 800 MG tab] 800 mg PO Q8HR PRN #30 tablet 01/24/22 Unknown Rx Sulfamethoxazole/Trimethoprim 1 each PO Q12H #20 tab 01/24/22 Unknown Rx [Bactrim DS TAB] Bictegrav/Emtricit/Tenofov Ala 1 each PO DAILY #30 tab 02/01/22 Unknown Rx [Biktarvy 50-200-25 mg Tablet] Divalproex Dr [Depakote Dr] 125 mg PO BID #30 tablet 02/01/22 Unknown Rx QUEtiapine [SEROquel] 25 mg PO BID #60 tablet 02/01/22 Unknown Rx QUEtiapine [SEROquel] 50 mg PO QHS #14 tablet 02/01/22 Unknown Rx Gabapentin 300 mg PO Q8HR #30 capsule 03/06/22 Unknown Rx predniSONE [Deltasone] 60 mg PO QDAY #15 tab 03/06/22 Unknown Rx traMADoL [Ultram] 50 mg PO Q6HR PRN #12 tablet 03/06/22 Unknown Rx ED Physical Exam - General Limitations: No Limitations General appearance: alert, in no apparent distress - Head Head exam: Present: atraumatic, normocephalic, normal inspection - Eye Eye exam: Present: normal appearance, PERRL, EOMI Pupils: Present: normal accommodation - ENT ENT exam: Present: normal exam, normal orophraynx, mucous membranes moist, TM's normal bilaterally, normal external ear exam - Neck Neck exam: Present: normal inspection, tenderness (Palpable left lateral cervical paraspinal musculoskeletal tenderness), full ROM, other (Palpable left lateral sternocleidomastoid and trapezius muscle tenderness) - Respiratory Respiratory exam: Present: normal lung sounds bilaterally. Absent: respiratory distress, wheezes, rhonchi, chest wall tenderness, accessory muscle use, decreased breath sounds, prolonged expiratory - Cardiovascular Cardiovascular Exam: Present: normal rhythm, tachycardia, normal heart sounds. Absent: systolic murmur, diastolic murmur, rubs, gallop - GI/Abdominal GI/Abdominal exam: Present: soft, normal bowel sounds. Absent: tenderness, guarding, rebound, hyperactive bowel sounds, hypoactive bowel sounds, organomegaly - Extremities Exam Extremities exam: Present: normal inspection, full ROM, tenderness (Palpable left lateral sternocleidomastoid and trapezius muscle tenderness), normal capillary refill. Absent: pedal edema, joint swelling, calf tenderness - Back Exam Back exam: Present: normal inspection, full ROM, tenderness (Palpable left upper thoracic paraspinal musculoskeletal tenderness), muscle spasm, paraspinal tenderness. Absent: CVA tenderness (R), CVA tenderness (L), vertebral tenderness - Neurological Exam Neurological exam: Present: alert, oriented X3, CN II-XII intact, normal gait, reflexes normal - Psychiatric Psychiatric exam: Present: normal affect, normal mood - Skin Skin exam: Present: warm, dry, intact, normal color. Absent: rash ED Course Vital Signs 03/06/22 02:20 Temperature 98.7 F Pulse Rate 104 H Respiratory 18 Rate Blood Pressure 144/94 O2 Sat by Pulse 96 Oximetry ED Medical Decision Making - Medical Decision Making This is a 36-year-old -Citizen Of The [place] male with a history of HIV who presents to the ED with complaint of acute onset persistent nontraumatic left-lateral neck pain that radiates to the left shoulder and left upper back for the last 2 weeks. Patient states that he was initially evaluated and treated at another hospital and was given a prescription of Robaxin and naproxen and that he has been taking this medication since then with no relief. Patient states that the pain is constant, persistent and worse with any movement. In the ED, patient is alert and oriented x3 and is not in any distress. Patient was treated for pain in the ED. On reevaluation, patient's pain is well controlled medication. Patient will discharge home on additional prescription of pain medications and advised to follow-up with his primary care physician in 7 to 10 days for reevaluation. Patient advised return to the ED immediately if symptoms get worse. - Differential Diagnosis Cervical strain; muscle spasm; torticollis; shoulders strain; radiculopathy Critical care attestation.: If time is entered above; I have spent that time in minutes in the direct care of this critically ill patient, excluding procedure time. ED Disposition Clinical Impression: Sprain of ligaments of cervical spine, initial encounter, Strain of muscle and tendon of back wall of thorax, initial encounter, Cervical radiculopathy Strain of sternocleidomastoid muscle Qualifiers: Encounter type: initial encounter Qualified Code(s): S16.1XXA - Strain of muscle, fascia and tendon at neck level, initial encounter Disposition: 01 HOME / SELF CARE / HOMELESS Is pt being admited?: No Does the pt Need Aspirin: No Condition: Stable Instructions: Muscle Strain, [id number], Cervical Sprain, [id number], Cervical Strain and Sprain Rehab-SportsMed, Cervical Radiculopathy, [id number], Acute Torticollis, Adult Additional Instructions: Take medication with food, drink plenty of fluids and follow-up with your primary care physician in 7 to 10 days for reevaluation. Return to the ED immediately if symptoms get worse. Prescriptions: predniSONE [Deltasone] 60 mg PO QDAY #15 tab Gabapentin 300 mg PO Q8HR #30 capsule traMADoL [Ultram] 50 mg PO Q6HR PRN #12 tablet PRN Reason: Pain Referrals: [facility] [Provider Group] - 7-10 days Time of Disposition: 04:36 Print Language: SYRIAC
== END 2022-03-06 05:04 | disposition home or self-care (01) ==
LOC: ED 02:15
DX: S16.1XXA Strain of muscle, fascia and tendon at neck level, initial encounter (principal); S13.4XXA Sprain of ligaments of cervical spine, initial encounter; S29.012A Strain of muscle and tendon of back wall of thorax, initial encounter; M54.12 Radiculopathy, cervical region; Z20.2 Contact with and (suspected) exposure to infections with a predominantly sexual mode of transmission; Z91.09 Other allergy status, other than to drugs and biological substances; Z79.899 Other long term (current) drug therapy; F17.200 Nicotine dependence, unspecified, uncomplicated; X58.XXXA Exposure to other specified factors, initial encounter; Y93.89 Activity, other specified; Y92.89 Other specified places as the place of occurrence of the external cause; Y99.8 Other external cause status
CPT/HCPCS: 96372; 99282; J1100; J1885

== ENCOUNTER 2022-03-12 20:57 | Emergency (ER) | payer SELFPAY ==
--- NOTE | 2022-03-12 21:35 | Emergency Department Report ---
ED Psych HPI - General Chief Complaint: Psych Stated Complaint: PSYCH, SI Time Seen by Provider: 03/12/22 21:23 Source: patient Mode of arrival: Ambulatory - History of Present Illness Initial Comments: Patient is a 36-year-old male with history of schizophrenia and previous suic idal attempt. Patient presented to the ER stating that he is hearing voices asking him to kill himself. Patient stated that he does not have a specific plan. Patient also reported that he feel like people are following him and trying to get him. He denied homicidal ideation. He also denied any drug abuse. MD Complaint: suicidal ideation, altered mental status -: days(s) Associated Psychiatric Symptoms: suicidal ideation, racing thoughts, auditory hallucinations Quality: constant Associated Symptoms: denies other symptoms If Self Harm: admits thoughts of - Related Data Previous Rx's Medication Instructions Recorded Last Taken Type Ibuprofen [Motrin 800 MG tab] 800 mg PO Q8HR PRN #30 tablet 01/24/22 Unknown Rx Sulfamethoxazole/Trimethoprim 1 each PO Q12H #20 tab 01/24/22 Unknown Rx [Bactrim DS TAB] Bictegrav/Emtricit/Tenofov Ala 1 each PO DAILY #30 tab 02/01/22 Unknown Rx [Biktarvy 50-200-25 mg Tablet] Divalproex Dr [Luis Perez] 125 mg PO BID #30 tablet 02/01/22 Unknown Rx QUEtiapine [SEROquel] 25 mg PO BID #60 tablet 02/01/22 Unknown Rx QUEtiapine [SEROquel] 50 mg PO QHS #14 tablet 02/01/22 Unknown Rx Gabapentin 300 mg PO Q8HR #30 capsule 03/06/22 Unknown Rx predniSONE [Deltasone] 60 mg PO QDAY #15 tab 03/06/22 Unknown Rx traMADoL [Ultram] 50 mg PO Q6HR PRN #12 tablet 03/06/22 Unknown Rx Divalproex [Luis PEREZ] 125 mg PO BID 30 Days #60 tab 03/14/22 Unknown Rx Quetiapine Fumarate [SEROquel] 50 mg PO QHS 30 Days #30 tab 03/14/22 Unknown Rx Allergies Allergy/AdvReac Type Severity Reaction Status Date / Time amoxicillin Allergy Mild Rash Verified 01/27/22 14:43 ED Review of Systems ROS: Stated complaint: PSYCH, SI Other details as noted in HPI Comment: All other systems reviewed and negative Constitutional: denies: chills, fever Respiratory: denies: cough, shortness of breath, SOB with exertion, SOB at rest Cardiovascular: denies: chest pain, palpitations Gastrointestinal: denies: abdominal pain, nausea, vomiting Musculoskeletal: denies: back pain Neurological: denies: headache, weakness, numbness, paresthesias, confusion Psychiatric: depression, auditory hallucinations, suicidal thoughts. denies: visual hallucinations, homicidal thoughts ED Past Medical Hx - Past Medical History Previous Medical History?: Yes Hx Congestive Heart Failure: No Hx Diabetes: No Hx Arthritis: No Hx Psychiatric Treatment: Yes (schizophrenia, bipolar) Hx Asthma: No Hx COPD: No Hx HIV: Yes Additional medical history: Heavy tobacco abuse - Surgical History Past Surgical History?: No - Social History Smoking Status: Current Every Day Smoker Substance Use Type: Alcohol, Cocaine - Medications Home Medications: Home Medications Medication Instructions Recorded Confirmed Last Taken Type Ibuprofen [Motrin 800 MG tab] 800 mg PO Q8HR PRN #30 tablet 01/24/22 Unknown Rx Sulfamethoxazole/Trimethoprim 1 each PO Q12H #20 tab 01/24/22 Unknown Rx [Bactrim DS TAB] Bictegrav/Emtricit/Tenofov Ala 1 each PO DAILY #30 tab 02/01/22 Unknown Rx [Biktarvy 50-200-25 mg Tablet] Divalproex Dr [Depakote Dr] 125 mg PO BID #30 tablet 02/01/22 Unknown Rx QUEtiapine [SEROquel] 25 mg PO BID #60 tablet 02/01/22 Unknown Rx QUEtiapine [SEROquel] 50 mg PO QHS #14 tablet 02/01/22 Unknown Rx Gabapentin 300 mg PO Q8HR #30 capsule 03/06/22 Unknown Rx predniSONE [Deltasone] 60 mg PO QDAY #15 tab 03/06/22 Unknown Rx traMADoL [Ultram] 50 mg PO Q6HR PRN #12 tablet 03/06/[address] [DepaKOTE DR] 125 mg PO BID 30 Days #60 tab 03/14/22 Unknown Rx Quetiapine Fumarate [SEROquel] 50 mg PO QHS 30 Days #30 tab 03/14/22 Unknown Rx ED Physical Exam - General Limitations: No Limitations General appearance: alert, in no apparent distress - Head Head exam: Present: atraumatic, normocephalic, normal inspection - Eye Eye exam: Present: normal appearance - ENT ENT exam: Present: normal exam, normal orophraynx, mucous membranes moist - Neck Neck exam: Present: normal inspection, full ROM. Absent: tenderness, meningismus - Respiratory Respiratory exam: Present: normal lung sounds bilaterally - Cardiovascular Cardiovascular Exam: Present: regular rate, normal rhythm, normal heart sounds - GI/Abdominal GI/Abdominal exam: Present: soft, normal bowel sounds. Absent: distended, tenderness, guarding, rebound, rigid, organomegaly, mass, bruit, pulsatile mass, hernia - Extremities Exam Extremities exam: Present: normal inspection, full ROM, normal capillary refill. Absent: tenderness - Back Exam Back exam: Present: normal inspection, full ROM. Absent: CVA tenderness (R), CVA tenderness (L) - Neurological Exam Neurological exam: Present: alert, oriented X3, CN II-XII intact, normal gait, reflexes normal. Absent: motor sensory deficit - Psychiatric Psychiatric exam: Present: depressed, suicidal ideation. Absent: homicidal ideation - Skin Skin exam: Present: warm, intact, normal color ED Course Vital Signs 03/12/22 03/12/22 03/12/22 21:06 22:52 22:56 Temperature 98.3 F 98.6 F Pulse Rate 104 H 90 Respiratory 18 16 Rate Blood Pressure 142/86 Blood Pressure 135/60 [Left] O2 Sat by Pulse 98 100 100 Oximetry 03/13/22 03/13/22 03/13/22 10:55 20:22 22:00 Temperature 98.2 F 98.5 F Pulse Rate 72 68 Respiratory 16 16 Rate Blood Pressure Blood Pressure 126/74 131/58 [Left] O2 Sat by Pulse 99 100 100 Oximetry 03/14/22 03/15/22 07:50 07:56 Temperature 98.2 F 97.2 F L Pulse Rate 71 68 Respiratory 16 18 Rate Blood Pressure Blood Pressure 131/90 130/85 [Left] O2 Sat by Pulse 100 98 Oximetry ED Medical Decision Making - Lab Data Result diagrams: 03/12/22 21:35 03/12/22 21:35 Critical care attestation.: If time is entered above; I have spent that time in minutes in the direct care of this critically ill patient, excluding procedure time. ED Disposition Clinical Impression: Schizophrenia Disposition: 01 HOME / SELF CARE / HOMELESS Is pt being admited?: No Condition: Stable Instructions: Schizophrenia Additional Instructions: Professional and Agency Contacts To help [facility](24/04) [place] Crisis Line: Suicide Prevention Line: Crisis Text Line: Text START to 472172 Emergency: 911 Outpatient COMMUNITY Behavioral Health Resources: [place]: [facility] [address] [place], [place] [address] [place]: [facility] [address] [place] [address] [place]: [id number] [place] [address] Monday thru Monday - 8am - 5pm [place]: [facility] Address: [address] [place] [address] [place]: [facility] Address: [address] [place] [address] Monday thru Monday- 7am-2pm [facility] Address: [address] [place] [address] Monday thru Monday: 8:30AM-5PM OUTPATIENT MENTAL HEALTH RESOURCES [facility], [address] [place] [address] [facility] Nirav Aponte MD: [address] [facility] [address] [place], [place] [id number] [facility]: [address] [place] [address] [address] [place], [place] [id number] [phone] [facility]: [address] [facility] [address] [place], [place] [id number] [facility]: [address] [facility] [address] [facility] [id number] [facility]: [address] [place] [address] Marty Harris MD: [address] [place] [address] [facility]: [address] [place], [place] [address] [place] [address] [phone] [place] CRISIS AND ACCESS LINE: * Prescriptions: Quetiapine Fumarate [SEROquel] 50 mg PO QHS 30 Days #[address] [DepaKOTE DR] 125 mg PO BID 30 Days #60 tab Referrals: DEVAUGHN JUAREZ MD [Primary Care Provider] - 3-5 Days
[2022-03-12 21:58] LABS: Basophils % (Auto) 0.5 % (0.0-1.8); Eosinophils # (Auto) 0.1 K/mm3 (0.0-0.4); Eosinophils % (Auto) 0.8 % (0.0-4.3); Hemoglobin 14.9 gm/dl (11.8-15.2); Lymphocytes # (Auto) 2.4 K/mm3 (1.2-5.4); Lymphocytes % (Auto) 26.8 % (13.4-35.0); Mean Corpuscular HGB Conc 35 % (32-34); Mean Corpuscular Volume 88 fl (84-94); Monocytes # (Auto) 0.7 K/mm3 (0.0-0.8); Monocytes % (Auto) 8.4 % (0.0-7.3); Platelet Count 270 K/mm3 (140-440); Red Blood Count 4.89 M/mm3 (3.65-5.03); Red Cell Distribution Width 13.1 % (13.2-15.2)
[2022-03-12 22:40] LABS: BUN/Creatinine Ratio 9; Blood Urea Nitrogen 12 mg/dL (9-20); Calcium 9.9 mg/dL (8.4-10.2); Hemolysis Index 9
[2022-03-13 02:52] LABS: Amphetamine Screen,Urine PRESUMPTIVE NEGATIVE; Benzodiazepines Screen,Urine PRESUMPTIVE NEGATIVE; Cannabinoid Screen,Urine PRESUMPTIVE NEGATIVE; Cocaine Screen,Urine PRESUMPTIVE POSITIVE; Methadone Screen,Urine PRESUMPTIVE NEGATIVE; Opiate Screen,Urine PRESUMPTIVE NEGATIVE
[2022-03-13 02:54] LABS: Bilirubin,Urine NEG (Negative); Blood,Urine NEG (Negative); Color,Urine Yellow (Yellow); Mucus,Urine FEW /HPF; Protein,Urine <15 mg/dL mg/dL (Negative); RBC,Urine < 1.0 /HPF (0.0-6.0); WBC,Urine < 1.0 /HPF (0.0-6.0)
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
--- NOTE | 2022-03-13 12:23 | Emergency Department Report ---
Blank Doc - Documentation Documentation: S: No events reported overnight O: Vital Signs - 8 hr 03/13/22 10:55 Temperature 98.2 F Pulse Rate 72 Respiratory 16 Rate Blood Pressure 126/74 [Left] O2 Sat by Pulse 99 Oximetry A: Schizophrenia P: Awaiting inpatient psych/1013
[2022-03-13] MEDS: QUEtiapine 25 MG TAB PO SCH (22:00)
[2022-03-13] MEDS: DIVALPROEX DR 125 MG TAB PO SCH (22:00)
--- NOTE | 2022-03-14 11:04 | Progress Note ---
Subjective - Reason for Consult Consult date: 03/14/22 Reason for consult: mental health evaluation - Chief Complaint Chief complaint: The patient was seen today. He states he feeling better today. He states " I'm trying to control the thoughts in my head." The atient presents with passive suicidal ideation,no specific plan. REVIEW OF SYSTEMS Constitutional: Negative for weight loss ENT: Negative for stridor Respiratory: Negative for cough or hemoptysis All other systems reviewed and are negative MENTAL STATUS EXAMINATION General Appearance and Behavior: Age appropriate, good hygiene, wearing a ppropriate clothes, good eye contact, anxious, cooperative Cooperation: Participating/engaged Psychomotor Behavior: Psychomotor normal Mood:calm Affect and affective range: congruent with stated mood Thought Process: Goal directed Thought Content: Reality oriented Speech: Normal tone and pace Suicidal Ideation:Passive Homicidal Ideation: Denies Hallucinations: Auditory Delusions: None Impulse Control: Limited Insight and Judgment: Limited insight and judgment Memory: Limited Attention: attentive Orientation: Alert, oriented Diagnoses: Schizophrenia Disorder Treatment Plan [id number] Continue home meds Depakote Dr 125mg po BID Seroquel 50mg po QHS PSYCHOTHERAPY: Supportive psychotherapy provided MEDICAL: Per primary team DELIRIUM PRECAUTIONS: Please re-orient patient frequently, keep lights on during the day, and minimize benzodiazepines and opiates as these medications could worsen patient's confusion. CERTIFIED REGISTERED NURSE ANESTHETIST: Per medical team DISPOSITION: Do not recommend acute psychiatric inpatient treatment. Distribution Sales Representative will provide patient with outpatient resources. Will sign off. Thanks. Thank you for the consult. Case staffed with Dr. Schneider Medications and Allergies Mental Status Exam - Vital signs Last Vital Signs Temp 98.2 F 03/14/22 07:50 Pulse 71 03/14/22 07:50 Resp 16 03/14/22 07:50 BP 131/90 03/14/22 07:50 Pulse Ox 100 03/14/22 07:50
[2022-03-14] MEDS: DIVALPROEX DR 125 MG TAB PO SCH ×2 (12:52→12:53)
[2022-03-14] MEDS: QUEtiapine 25 MG TAB PO SCH ×2 (12:52)
[2022-03-15 07:56] VITALS: BP 130/85
== END 2022-03-15 10:24 | disposition home or self-care (01) ==
LOC: ED 20:57 → EEVIPCON 20:57 → ED 03-15 10:24
DX: R45.851 Suicidal ideations (principal); R44.0 Auditory hallucinations; F31.9 Bipolar disorder, unspecified; Z21 Asymptomatic human immunodeficiency virus [HIV] infection status; F17.200 Nicotine dependence, unspecified, uncomplicated; Z91.09 Other allergy status, other than to drugs and biological substances; Z79.899 Other long term (current) drug therapy; Z20.822 Contact with and (suspected) exposure to COVID-19
CPT/HCPCS: 36415; 80048; 80307; 81001; 85025; 99284; U0003; 80320; G0480

== ENCOUNTER 2022-03-27 11:30 | Emergency (ER) | payer SELFPAY | END 2022-03-27 18:37 | LOC: ED 11:30 | DX: Z00.00 Encounter for general adult medical examination without abnormal findings (principal); Z53.21 Procedure and treatment not carried out due to patient leaving prior to being seen by health care provider ==

== ENCOUNTER 2022-03-29 16:32 | Emergency (ER) | payer SELFPAY ==
[2022-03-29 18:09] LABS: Basophils % (Auto) 0.3 % (0.0-1.8); Eosinophils # (Auto) 0.1 K/mm3 (0.0-0.4); Hematocrit 44.4 % (35.5-45.6); Hemoglobin 14.9 gm/dl (11.8-15.2); Lymphocytes # (Auto) 1.5 K/mm3 (1.2-5.4); Lymphocytes % (Auto) 21.5 % (13.4-35.0); Mean Corpuscular HGB Conc 34 % (32-34); Mean Corpuscular Volume 90 fl (84-94); Monocytes # (Auto) 0.6 K/mm3 (0.0-0.8); Monocytes % (Auto) 8.8 % (0.0-7.3); Platelet Count 253 K/mm3 (140-440); Red Blood Count 4.95 M/mm3 (3.65-5.03)
[2022-03-29 18:14] LABS: Bilirubin,Urine NEG (Negative); Blood,Urine NEG (Negative); Color,Urine Yellow (Yellow)
[2022-03-29 18:15] LABS: Benzodiazepines Screen,Urine Negative; Cannabinoid Screen,Urine Negative; Methadone Screen,Urine Negative; Opiate Screen,Urine Negative
[2022-03-29 18:25] LABS: Mucus,Urine 3+ /HPF
[2022-03-29 18:34] LABS: Amphetamine Screen,Urine Positive; Cocaine Screen,Urine Positive
[2022-03-29 19:41] VITALS: BP 154/97
[2022-03-29 19:49] LABS: Alanine Aminotransferase 13 units/L (7-56); Albumin 5.2 g/dL (3.9-5); BUN/Creatinine Ratio 11; Blood Urea Nitrogen 14 mg/dL (9-20); Calcium 10.1 mg/dL (8.4-10.2); Hemolysis Index 23
--- NOTE | 2022-03-29 23:05 | Emergency Department Report ---
ED Psych HPI - General Chief Complaint: Psych Stated Complaint: MENTAL HEALTH CONCERNS Time Seen by Provider: 03/29/22 18:55 Source: patient Mode of arrival: Ambulatory - History of Present Illness Initial Comments: Patient is a 36-year-old male with history of schizophrenia presenting to ED with complaint of suicidal ideations. States he has been stressed out due to having problems with family and friends. Denies plan. - Related Data Previous Rx's Medication Instructions Recorded Last Taken Type Ibuprofen [Motrin 800 MG tab] 800 mg PO Q8HR PRN #30 tablet 01/24/22 Unknown Rx Sulfamethoxazole/Trimethoprim 1 each PO Q12H #20 tab 01/24/22 Unknown Rx [Bactrim DS TAB] Bictegrav/Emtricit/Tenofov Ala 1 each PO DAILY #30 tab 02/01/22 Unknown Rx [Biktarvy 50-200-25 mg Tablet] Divalproex Dr [Luis Perez] 125 mg PO BID #30 tablet 02/01/22 Unknown Rx QUEtiapine [SEROquel] 25 mg PO BID #60 tablet 02/01/22 Unknown Rx QUEtiapine [SEROquel] 50 mg PO QHS #14 tablet 02/01/22 Unknown Rx Gabapentin 300 mg PO Q8HR #30 capsule 03/06/22 Unknown Rx predniSONE [Deltasone] 60 mg PO QDAY #15 tab 03/06/22 Unknown Rx traMADoL [Ultram] 50 mg PO Q6HR PRN #12 tablet 03/06/[address] [Luis PEREZ] 125 mg PO BID 30 Days #60 tab 03/14/22 Unknown Rx Quetiapine Fumarate [SEROquel] 50 mg PO QHS 30 Days #30 tab 03/14/22 Unknown Rx Allergies Allergy/AdvReac Type Severity Reaction Status Date / Time amoxicillin Allergy Mild Rash Verified 01/27/22 14:43 ampicillin [From Polycillin] Allergy Unknown Verified 03/29/22 17:07 ED Review of Systems ROS: Stated complaint: MENTAL HEALTH CONCERNS Other details as noted in HPI ED Past Medical Hx - Past Medical History Previous Medical History?: Yes Hx Congestive Heart Failure: No Hx Diabetes: No Hx Arthritis: No Hx Psychiatric Treatment: Yes (schizophrenia, bipolar) Hx Asthma: No Hx COPD: No Hx HIV: Yes Additional medical history: Heavy tobacco abuse - Social History Smoking Status: Current Every Day Smoker Substance Use Type: Alcohol, Cocaine - Medications Home Medications: Home Medications Medication Instructions Recorded Confirmed Last Taken Type Ibuprofen [Motrin 800 MG tab] 800 mg PO Q8HR PRN #30 tablet 01/24/22 Unknown Rx Sulfamethoxazole/Trimethoprim 1 each PO Q12H #20 tab 01/24/22 Unknown Rx [Bactrim DS TAB] Bictegrav/Emtricit/Tenofov Ala 1 each PO DAILY #30 tab 02/01/22 Unknown Rx [Biktarvy 50-200-25 mg Tablet] Divalproex Dr [Depakote Dr] 125 mg PO BID #30 tablet 02/01/22 Unknown Rx QUEtiapine [SEROquel] 25 mg PO BID #60 tablet 02/01/22 Unknown Rx QUEtiapine [SEROquel] 50 mg PO QHS #14 tablet 02/01/22 Unknown Rx Gabapentin 300 mg PO Q8HR #30 capsule 03/06/22 Unknown Rx predniSONE [Deltasone] 60 mg PO QDAY #15 tab 03/06/22 Unknown Rx traMADoL [Ultram] 50 mg PO Q6HR PRN #12 tablet 03/06/[address] [DepaKOTE DR] 125 mg PO BID 30 Days #60 tab 03/14/22 Unknown Rx Quetiapine Fumarate [SEROquel] 50 mg PO QHS 30 Days #30 tab 03/14/22 Unknown Rx ED Physical Exam - General Limitations: No Limitations General appearance: alert, in no apparent distress - Head Head exam: Present: atraumatic, normocephalic - Neck Neck exam: Present: normal inspection - Respiratory Respiratory exam: Present: normal lung sounds bilaterally. Absent: respiratory distress - Cardiovascular Cardiovascular Exam: Present: regular rate, normal rhythm, normal heart sounds - GI/Abdominal GI/Abdominal exam: Present: soft. Absent: distended, tenderness - Rectal Rectal exam: Present: deferred - Neurological Exam Neurological exam: Present: alert, oriented X3 - Psychiatric Psychiatric exam: Present: normal affect, normal mood, suicidal ideation - Skin Skin exam: Present: warm, dry, intact, normal color ED Course Vital Signs 03/29/22 19:38 Temperature 98.5 F Pulse Rate 110 H Respiratory 18 Rate Blood Pressure 154/97 [Left] O2 Sat by Pulse 98 Oximetry ED Medical Decision Making - Lab Data Result diagrams: 03/29/22 17:44 03/29/22 17:44 - Medical Decision Making UDS positive for amphetamines and cocaine. CBC CMP grossly unremarkable. Patient medically clear. Patient underwent mental health assessment and was recommended for outpatient follow-up and treatment. He is currently calm and c ooperative. Stable for discharge. Critical care attestation.: If time is entered above; I have spent that time in minutes in the direct care of this critically ill patient, excluding procedure time. ED Disposition Clinical Impression: Stress, Passive suicidal ideations Disposition: HOME / SELF CARE / HOMELESS Is pt being admited?: No Does the pt Need Aspirin: No Condition: Stable Instructions: Suicidal Feelings: How to Help Yourself, Stress, Adult Additional Instructions: Professional and Agency Contacts To help [facility](24/04) [place] Crisis Line: Suicide Prevention Line: Crisis Text Line: Text START to 721010 Emergency: 911 Outpatient COMMUNITY Behavioral Health Resources: [place]: [facility] [address] [place], [place] [address] [place]: [facility] [address] [place] [address] [place]: [facility] [address] [place] [address] Monday thru Monday - 8am - 5pm [facility] Service Address: [address] [place] [address] [place]: [facility] Address: [address] [place] [address] Monday thru Monday- 7am-2pm [facility] Address: [address] [place] [id number] Monday thru Monday: 8:30AM-5PM Phone: [phone] Referrals: DEVAUGHN JUAREZ MD [Primary Care Provider] - 3-5 Days
== END 2022-03-30 01:00 | disposition home or self-care (01) ==
LOC: ED 16:32
DX: R45.851 Suicidal ideations (principal); F43.9 Reaction to severe stress, unspecified; F20.9 Schizophrenia, unspecified; F31.9 Bipolar disorder, unspecified; F17.200 Nicotine dependence, unspecified, uncomplicated; F14.90 Cocaine use, unspecified, uncomplicated; Z72.89 Other problems related to lifestyle; Z79.899 Other long term (current) drug therapy; Z88.1 Allergy status to other antibiotic agents
CPT/HCPCS: 36415; 80053; 80307; 80320; 81001; 85025; 99283; G0480

== ENCOUNTER 2022-03-30 08:40 | Emergency (ER) | payer SELFPAY ==
[2022-03-30 09:01] VITALS: BP 120/75
== END 2022-03-30 17:38 | disposition left against medical advice (07) ==
LOC: ED 08:40
DX: R07.89 Other chest pain (principal); Z53.21 Procedure and treatment not carried out due to patient leaving prior to being seen by health care provider